=== PATIENT | female | born 1960 | race Caucasian/White ===

== ENCOUNTER 2018-04-25 09:27 | Day surgery (SDC) | payer OTHER, SELFPAY ==
[2018-04-24 13:14] VITALS: BMI 32.4
--- NOTE | 2018-04-25 13:29 | OP ---
DATE OF PROCEDURE: 04/25/2018 PROCEDURES PERFORMED: Esophagogastroduodenoscopy with biopsy, colonoscopy with biopsy and polypectom y. INDICATION FOR PROCEDURE: Mid epigastric abdominal pain, right lower quadrant abdominal pain, abnorm al GI imaging. DESCRIPTION OF PROCEDURE: After the risks and benefits of the procedures were explained to the patie nt including risks of bleeding, infection, perforation, reaction to anesthesia, aspiration and/or adwoa n, informed consent was obtained at which point, the patient was then taken to the endoscopy suite wh ere deep sedation was administered via propofol and anesthesia support. Once adequate sedation was a chieved, the standard gastroscope was introduced into the mouth with intubation of the esophagus, sto mach and the proximal small intestine with the findings listed below. Upon completion of this, the p atient tolerated this portion of the procedure well with no immediate perioperative complications. U xavier completion of this portion of the procedure, all equipment was removed with the bed then rotated 180 degrees in preparation for the colonoscopy. Once in position, a digital rectal examination was p erformed after which the standard colonoscope was introduced into the rectum and advanced to the term inal ileum without difficulty with the findings listed below. The quality of the prep was excellent. The patient tolerated this procedure well with no immediate perioperative complications. ESOPHAGOGASTRODUODENOSCOPY FINDINGS: Esophagus: Normal appearing mucosa was seen just proximal and mid esophagus. In the distal esophagu s, 2-3 small linear erosions were seen extending proximally from the GE junction around 5-7 mm in cedric gth, but without overt ulcerations. There was no evidence of mass lesions or active/recent bleeding. Stomach: Mildly increased mucosal erythema was seen in the gastric cardia, fundus, body, antrum and incisura. There were also numerous small petechial appearing clots. They were seen throughout the s tomach, but upon aggressive irrigation did not yield any obvious pathology underneath multiple biopsi es. Multiple random biopsies were taken throughout the stomach for evaluation of NSAID gastritis daniel yadira H. pylori gastritis. Otherwise, there was no overt erosions, ulcerations, mass lesions or active /recent bleeding. Duodenum: Normal appearing mucosa was seen in both the duodenal bulb and second portion of the duode num. There was no evidence of erosions, ulcerations, mass lesions or active/recent bleeding. IMPRESSION: 1. LA grade B reflux mediated erosive esophagitis. 2. Diffuse mucosal erythema of the entire stomach concerning for nonsteroidal anti-inflammatory drug s gastritis versus Helicobacter pylori infection. COLONOSCOPY FINDINGS: Digital rectal exam, small external hemorrhoids were seen on external examination. COLON FINDINGS: Normal appearing mucosa was seen in the terminal ileum up to 5-10 cm past the ileoce jeremie valve. Normal appearing mucosa was also seen at the ileocecal valve, appendiceal orifice and wit hin the cecum itself. Normal appearing mucosa was seen in the ascending and transverse colon, 2 poly ps measuring 3-4 mm in size were seen in the descending colon and completely removed with cold snare polypectomy. They were retrieved and placed in a specimen jar for evaluation. An additional 3-4 mm polyp was also seen in the sigmoid colon and completely removed with cold snare polypectomy. It was retrieved and placed in a specimen jar for evaluation as well. Normal appearing mucosa was then seen in the rectum with small internal hemorrhoids seen on rectal retroflexion. Random colonic biopsies were taken throughout the entire colon from the ascending, transverse, descending and sigmoid colons for underlying abnormalities. IMPRESSION: 1. Two 3-4 mm descending colon polyp, status post cold snare polypectomy. 2. A 3-4 mm sigmoid colon polyp, status post cold snare polypectomy. 3. Internal and external hemorrhoids. 4. No etiology for the patient's abdominal pain was seen during this examination. RECOMMENDATIONS: 1. We will follow up on the biopsy results with further management guided by the pathology report. 2. We would continue higher fiber diet with FODMAP guidance. 3. Would encourage the patient about administering omeprazole 30-45 minutes before meals. 4. Follow up in the GI clinic in 3 weeks for further evaluation of abdominal pain and acid reflux.
[2018-04-25] MEDS ORDERED: Lidocaine 1% PF 5 ML VIAL ONE (14:35)
[2018-04-25] MEDS ORDERED: PROPOFOL 200 MG/20 ML VIAL ONE (14:35)
== END 2018-04-25 12:27 | disposition home or self-care (01) ==
LOC: SDC 09:27
PROVIDERS: ATTEND Internal Medicine
PROC: 0DBM8ZX Excision of Descending Colon, Via Natural or Artificial Opening Endoscopic, Diagnostic (ICD-10-PCS; principal; 2018-04-25)
PROC: 0DB68ZX Excision of Stomach, Via Natural or Artificial Opening Endoscopic, Diagnostic (ICD-10-PCS; principal; 2018-04-25)
PROC: 0DBN8ZX Excision of Sigmoid Colon, Via Natural or Artificial Opening Endoscopic, Diagnostic (ICD-10-PCS; principal; 2018-04-25)
DX: D12.4 Benign neoplasm of descending colon (principal); D12.5 Benign neoplasm of sigmoid colon; K29.50 Unspecified chronic gastritis without bleeding; K21.9 Gastro-esophageal reflux disease without esophagitis; F17.200 Nicotine dependence, unspecified, uncomplicated; K64.8 Other hemorrhoids; K64.4 Residual hemorrhoidal skin tags; Z88.2 Allergy status to sulfonamides; Z79.899 Other long term (current) drug therapy
CPT/HCPCS: 88305; 88312; J2001; J2704

== ENCOUNTER 2018-05-15 16:04 | Outpatient (CLI) | payer OTHER ==
[2018-05-15 17:11] LABS: #Basophils 0.1 thou/uL (0.0-0.2); #Eosinphils 0.1 thou/uL (0.0-0.7); #Lymphocytes 2.3 thou/uL (1.20-3.40); #Monocytes 0.7 thou/uL (0.11-0.59); #Neutrophils 2.7 thou/uL (1.40-6.50); %Basophils 1.1 % (0.0-1.0); %Eosinophils 2.4 % (0.0-10.0); %Lymphocytes 39.2 % (21.0-51.0); %Monocytes 11.4 % (0.0-10.0); %Neutrophils 45.9 % (42.0-75.0); Hemoglobin 13.4 g/dL (12.0-16.0); Mean Corpuscular HGB CONC 31.4 g/dL (32.0-36.0); Mean Corpuscular Volume 85.9 fL (78.0-98.0); Mean Platelet Volume 7.3 fL (7.4-10.4); Platelet Count 333 thou/uL (130-400); RBC Distribution Width 13.6 % (11.5-14.5); Red Blood Cell (RBC) Count 4.98 mill/uL (4.20-5.40); White Blood Cell (WBC) Count 5.8 thou/uL (4.8-10.8)
[2018-05-15 17:35] LABS: ALT (SGPT) 23 U/L (8-55); AST (SGOT) 20 U/L (5-34); Albumin 4.1 g/dL (3.5-5.0); Alkaline Phosphatase 94 U/L (40-150); Anion Gap 10 mmol/L (10-20); BUN (Urea Nitrogen) 12 mg/dL (9.8-20.1); Bilirubin, Total 0.3 mg/dL (0.2-1.2); Calc. Creatinine Clearance 0 mL/min (70-130); Calcium 10.1 mg/dL (7.8-10.44); Carbon Dioxide 29 mmol/L (22-29); Chloride 104 mmol/L (98-107); Estimated GFR-MDRD 69; Globulin 3.4 g/dL (2.4-3.5); Glucose 69 mg/dL (70-105); Potassium 4.7 mmol/L (3.5-5.1); Protein, Total 7.5 g/dL (6.0-8.3); Sodium 138 mmol/L (136-145)
--- NOTE | 2018-05-16 15:16 | EKG ---
Test Reason : Blood Pressure : / mmHG Vent. Rate : 087 BPM Atrial Rate : 087 BPM P-R Int : 154 ms QRS Dur : 118 ms QT Int : 386 ms P-R-T Axes : 066 049 079 degrees QTc Int : 464 ms Normal sinus rhythm Incomplete right bundle branch block Prolonged QT Abnormal ECG Confirmed by DR. Agnes GALLEGOS MD ([id number]) on 05/16/2018 3:15:22 PM Referred By: NATI Confirmed By:DR. Agnes GALLEGOS MD
== END 2018-05-15 16:05 | disposition home or self-care (01) ==
LOC: LABBT 16:04
PROVIDERS: ATTEND Surgery
DX: Z01.818 Encounter for other preprocedural examination (principal)
CPT/HCPCS: 80053; 85025; 93005; 93010

== ENCOUNTER 2018-05-20 12:15 | Inpatient (IN) | payer OTHER ==
[2018-05-15 16:41] VITALS: BMI 31.2
[2018-05-20] MEDS ORDERED: Hydrocortisone Sod Succ/PF 100 mg/2 ml Vial ONE (13:33)
[2018-05-20] MEDS ORDERED: Glycopyrrolate 0.2 MG/ML 5 ML SYRINGE ONE (13:36)
[2018-05-20] MEDS ORDERED: PROPOFOL 200 MG/20 ML VIAL ONE (13:36)
[2018-05-20] MEDS ORDERED: Succinylcholine Chloride 20 MG/ML 10 ml SYRINGE FS ONE (13:36)
[2018-05-20] MEDS ORDERED: Dexamethasone 20 MG/5 ML VIAL ONE (13:36)
[2018-05-20] MEDS ORDERED: Ondansetron HCl/PF 4 MG/2 ML Vial ONE (13:36)
[2018-05-20] MEDS ORDERED: Lidocaine 1% PF 5 ML VIAL ONE (13:36)
[2018-05-20] MEDS ORDERED: Midazolam HCl 2 mg/2 ml Vial ONE (14:07)
[2018-05-20] MEDS ORDERED: CEFAZOLIN/Water 2 GM/20 ML SYRINGE ONE (14:21)
[2018-05-20] MEDS ORDERED: Fentanyl 100 MCG/2 ML VIAL ONE ×2 (15:02→16:38)
[2018-05-20] MEDS ORDERED: Bupivacaine HCl 0.5%/Epinephrine 1:200,000/PF 30 ml Vial ONE (15:06)
[2018-05-20] MEDS ORDERED: Albumin 5% 500 ML ONE (15:43)
[2018-05-20] MEDS ORDERED: HYDROmorphone 2 MG/ML VIAL ONE (16:49)
[2018-05-20] MEDS ORDERED: Dextrose 50% Abboject 50 ML SYRINGE SLOW IVP PRN (16:55)
[2018-05-20] MEDS ORDERED: HYDROcodone/Acetaminophen 10/325 mg Tablet PO PRN ×2 (16:55)
[2018-05-20] MEDS ORDERED: hydrALAZINE 20 MG/ML VIAL SLOW IVP PRN (16:55)
[2018-05-20] MEDS ORDERED: Morphine 4 MG/ML VIAL SLOW IVP PRN ×2 (16:55)
[2018-05-20] MEDS ORDERED: Dextrose 5% in Water 1,000 ML IV PRN (16:55)
[2018-05-20] MEDS ORDERED: Promethazine HCl 25 MG/ML VIAL IM PRN (16:55)
[2018-05-20] MEDS ORDERED: Ondansetron HCl/PF 4 MG/2 ML Vial IVP PRN ×2 (16:55→17:59)
[2018-05-20] MEDS ORDERED: fentaNYL Citrate/PF 2,000 MCG in Sodium Chloride 0.9% 60 ML IV PRN (17:59)
[2018-05-20] MEDS ORDERED: diphenhydrAMINE 50 MG/ML VIAL IVP PRN (17:59)
[2018-05-20] MEDS ORDERED: Naloxone HCl 0.4 mg/ml Vial IV PRN (17:59)
[2018-05-20] MEDS ORDERED: diphenhydrAMINE 50 MG/ML VIAL IM PRN (17:59)
[2018-05-20] MEDS ORDERED: diphenhydrAMINE 25 MG CAP PO PRN (17:59)
[2018-05-20] MEDS ORDERED: Communication Order-Pharmacy FS SCH (18:00)
[2018-05-20] MEDS: Lactated Ringer's 1,000 ML IV SCH (18:30)
[2018-05-20] MEDS: Ketorolac Tromethamine 30 MG/ML VIAL IVP SCH ×2 (18:31→23:19)
[2018-05-20] MEDS: Famotidine/PF 20 mg/2ml Vial SLOW IVP SCH (20:27)
[2018-05-20] MEDS: cefOXitin 2 GM in Sodium Chloride 0.9% 100 ML IVPB SCH (21:06)
[2018-05-20] MEDS: Famotidine 20 MG TAB PO SCH (21:10)
[2018-05-20] MEDS: Zolpidem Tartrate 5 MG TAB PO PRN (23:22)
--- NOTE | 2018-05-20 23:45 | OP ---
PREOPERATIVE DIAGNOSIS: Possible carcinomatosis. SURGEON: Hunter Brown M.D. PROCEDURES PERFORMED: Diagnostic laparoscopy, laparoscopic lysis of adhesions, laparoscopic omental biopsies. INDICATIONS: The patient is a 58-year-old female, who has been having some vague abdominal pain. Sh zachary had a CT scan showing what looked like possible carcinomatosis. She had EGD and colonoscopy withou t evidence of a source. FINDINGS: The omentum was adherent to the anterior abdominal wall, more so from midline to the left, very firm and inflamed. There was minimal peritoneal fluid. She had what looked like endometriosis down in the pelvis and her right ovary was firmly attached to the abdominal wall as well. PROCEDURE IN DETAIL: After informed consent was obtained, the patient was taken to the operating ulises m, given general endotracheal anesthesia, placed in the supine position. Abdomen was prepped and lisbeth ped in usual fashion. Local anesthesia infiltrated subcutaneously and deep. A 5-mm incision was per formed to the right of the umbilicus. Veress needle inserted. Drop test performed. Pneumoperitoneu m was created to a volume of 2 liters of carbon dioxide. Utilizing a bladeless 5-mm trocar and 0 deg ree laparoscope, direct visual entry in the abdominal cavity was performed. Pneumoperitoneum was the n created to a pressure of 15 mmHg. Under direct vision, two 5-mm ports were placed on the right peyton e as this mass was mainly on the left and it was very firmly attached. There was not an obvious tumo r nodule, but it was firm like it was inflamed or there might be tumor involving it. Using the LigaS ure, it was from the anterior abdominal wall. Hemostasis assured. Then, pieces of this om entum where it was most dense were excised and removed for biopsy. Again, there was not any definite source. Looked down in the pelvis, there was evidence of endometriosis in both pelvis and the ovari es were very firmly attached to the anterior abdominal wall. Hemostasis was achieved utilizing the L igaSure as well as Sussy powder. Then, trocars and retractors removed. Skin closed with interrupte d 4-0 Rapide. Steri-Strips applied. Sterile bandage applied. The patient tolerated the procedure w ell and was transferred to recovery in good condition. Sponge and needle count verified correct x2.
[2018-05-21 04:40] LABS: #Lymphocytes 0.8 thou/uL (1.20-3.40); #Monocytes 0.5 thou/uL (0.11-0.59); #Neutrophils 4.3 thou/uL (1.40-6.50); %Basophils 0.2 % (0.0-1.0); %Eosinophils 0.9 % (0.0-10.0); %Lymphocytes 14.5 % (21.0-51.0); %Monocytes 9.2 % (0.0-10.0); %Neutrophils 75.3 % (42.0-75.0); Hemoglobin 11.6 g/dL (12.0-16.0); Mean Corpuscular HGB CONC 30.9 g/dL (32.0-36.0); Mean Corpuscular Volume 87.4 fL (78.0-98.0); Mean Platelet Volume 7.9 fL (7.4-10.4); Platelet Count 281 thou/uL (130-400); RBC Distribution Width 13.6 % (11.5-14.5); White Blood Cell (WBC) Count 5.6 thou/uL (4.8-10.8)
[2018-05-21 04:48] LABS: Anion Gap 14 mmol/L (10-20); BUN (Urea Nitrogen) 11 mg/dL (9.8-20.1); Calc. Creatinine Clearance 87 mL/min (70-130); Calcium 9.5 mg/dL (7.8-10.44); Carbon Dioxide 24 mmol/L (22-29); Chloride 105 mmol/L (98-107); Estimated GFR-MDRD 71; Glucose 110 mg/dL (70-105); Potassium 4.5 mmol/L (3.5-5.1); Sodium 138 mmol/L (136-145)
[2018-05-21] MEDS: cefOXitin 2 GM in Sodium Chloride 0.9% 100 ML IVPB SCH ×3 (05:18→21:57)
[2018-05-21] MEDS: Ketorolac Tromethamine 30 MG/ML VIAL IVP SCH ×4 (05:18→23:07)
[2018-05-21] MEDS: Lactated Ringer's 1,000 ML IV SCH ×3 (05:21→23:13)
[2018-05-21] MEDS: Enoxaparin Sodium 40 MG/0.4 ML SYRINGE SC SCH (08:10)
[2018-05-21] MEDS: Famotidine 20 MG TAB PO SCH ×2 (08:10→20:14)
[2018-05-21] MEDS: Famotidine/PF 20 mg/2ml Vial SLOW IVP SCH ×2 (08:14→20:14)
[2018-05-21] MEDS: Acetaminophen 1,000 MG in Premix Bag 1 BAG IVPB SCH ×3 (11:15→23:07)
[2018-05-21] MEDS ORDERED: DC PCA Order Set 1 EACH FS ONE (16:31)
[2018-05-21] MEDS ORDERED: HYDROcodone/Acetaminophen 10/325 mg Tablet PO PRN (16:32)
[2018-05-21] MEDS ORDERED: Morphine 4 MG/ML Carpuject SLOW IVP PRN (16:32)
--- NOTE | 2018-05-21 17:25 | PRG ---
DATE OF SERVICE: 05/21/2018 SUBJECTIVE: The patient reports still having quite a bit of pain, but it is better. She is tolerati ng diet. She feels bloated. PHYSICAL EXAMINATION: VITAL SIGNS: Temperature 98.1, pulse 68, blood pressure 135/84. She is up walking. She looks like she is okay. ABDOMEN: Soft, obese, mild tenderness. LABORATORY DATA: White count 5.6, H&H 11 and 37, platelet count 281. The pathology is pending. ASSESSMENT: Status post omental biopsy. PLAN: Switch her off the [employer] to oral pain medicines, hopefully go home tomorrow.
[2018-05-21] MEDS: HYDROcodone/Acetaminophen 10/325 mg Tablet PO PRN ×2 (17:58→23:18)
[2018-05-21] MEDS: Promethazine HCl 25 MG/ML VIAL IM PRN (18:05)
[2018-05-21] MEDS ORDERED: Morphine 2 MG/ML SYRINGE SLOW IVP PRN (19:20)
[2018-05-21] MEDS ORDERED: Morphine 4 MG/ML VIAL SLOW IVP PRN (19:21)
[2018-05-21] MEDS: Venlafaxine HCl XR 75 MG CAP PO SCH (20:14)
[2018-05-21] MEDS: traZODone HCl 50 MG TAB PO PRN (20:17)
[2018-05-21] MEDS: Zolpidem Tartrate 5 MG TAB PO PRN (22:00)
[2018-05-22] MEDS: HYDROcodone/Acetaminophen 10/325 mg Tablet PO PRN ×5 (04:09→22:20)
[2018-05-22] MEDS: Acetaminophen 1,000 MG in Premix Bag 1 BAG IVPB SCH ×2 (05:09→12:21)
[2018-05-22] MEDS: cefOXitin 2 GM in Sodium Chloride 0.9% 100 ML IVPB SCH ×3 (05:17→21:48)
[2018-05-22] MEDS: Ketorolac Tromethamine 30 MG/ML VIAL IVP SCH ×4 (05:18→23:42)
[2018-05-22] MEDS: Famotidine 20 MG TAB PO SCH ×2 (08:59→20:44)
[2018-05-22] MEDS: Enoxaparin Sodium 40 MG/0.4 ML SYRINGE SC SCH (08:59)
[2018-05-22] MEDS: Promethazine HCl 25 MG/ML VIAL IM PRN (09:12)
[2018-05-22] MEDS: Famotidine/PF 20 mg/2ml Vial SLOW IVP SCH ×2 (09:59→20:44)
[2018-05-22] MEDS: Lactated Ringer's 1,000 ML IV SCH ×2 (10:05→19:37)
[2018-05-22] MEDS ORDERED: Magnesium Citrate 300 ML BOT PO SCH (12:00)
[2018-05-22] MEDS: Venlafaxine HCl XR 75 MG CAP PO SCH (20:43)
[2018-05-22] MEDS: traZODone HCl 50 MG TAB PO PRN (20:46)
[2018-05-22] MEDS ORDERED: Venlafaxine HCl XR 75 MG CAP PO SCH (21:00)
[2018-05-23] MEDS: HYDROcodone/Acetaminophen 10/325 mg Tablet PO PRN ×3 (02:43→11:31)
[2018-05-23] MEDS: Lactated Ringer's 1,000 ML IV SCH (04:39)
[2018-05-23] MEDS: Ketorolac Tromethamine 30 MG/ML VIAL IVP SCH ×2 (05:34→11:31)
[2018-05-23] MEDS: cefOXitin 2 GM in Sodium Chloride 0.9% 100 ML IVPB SCH (05:35)
[2018-05-23] MEDS: Enoxaparin Sodium 40 MG/0.4 ML SYRINGE SC SCH (08:11)
[2018-05-23] MEDS: Famotidine/PF 20 mg/2ml Vial SLOW IVP SCH (08:11)
[2018-05-23] MEDS: Famotidine 20 MG TAB PO SCH (08:11)
[2018-05-23 11:57] VITALS: BP 136/81; TEMP 98
== END 2018-05-23 14:59 | disposition home or self-care (01) | DRG 376 ==
LOC: SDC 12:15 → SURG B 17:36
PROVIDERS: ADMIT Surgery; ATTEND Surgery
PROC: 0DBU4ZX Excision of Omentum, Percutaneous Endoscopic Approach, Diagnostic (ICD-10-PCS; principal; 2018-05-20)
DX: C48.2 Malignant neoplasm of peritoneum, unspecified (principal); F32.9 Major depressive disorder, single episode, unspecified; Z88.8 Allergy status to other drugs, medicaments and biological substances; F41.9 Anxiety disorder, unspecified
CPT/HCPCS: 36415; 80048; 85025; 88305; 88313; 88341; 88342; 94640; J0131; J0670; J0694; J1100; J1170; J1650; J1720; J1885; J2001; J2250; J2270; J2405; J2550; J2704; J3010; J7050; J7620; P9045; S0028

== ENCOUNTER 2018-06-02 10:50 | Outpatient (CLI) | payer OTHER ==
[~2018-06-02 10:50] MED LIST: Iopamidol 370 76% 100 ML VIAL ONE
--- NOTE | 2018-06-02 13:38 | CT ---
CONTRAST ENHANCED CT OF THE CHEST CONTRAST ENHANCED CT OF THE ABDOMEN AND PELVIS: History: 58-year-old with history of malignant neoplasm. C48.1 Technique: Contrast enhanced CT images of the chest, abdomen, and pelvis obtained. Comparison: 03-28-18 FINDINGS: CT CHEST: There is some mild interstitial fibrotic changes seen in the periphery of the right and left lower lo bes compatible with some interstitial fibrosis. No definite evidence of lung parenchymal metastases s een. No definite evidence of mediastinal, axillary or hilar lymphadenopathy is seen. Hepatic steatosis is seen. The gallbladder has been surgically removed. The spleen is unremarkable. T he pancreas is unremarkable. Adrenal glands are unremarkable. The kidneys and ureters are unremarkable without evidence of hydronephrosis. There does appear to be fat stranding in the mesenteric fat, not significantly changed since the prev ious exam, most compatible with intraperitoneal carcinomatosis. No definite evidence of ascites seen at this time. No evidence of periaortic lymphadenopathy seen. Some minimal sigmoid colonic diverticulosis is present. No definite evidence of abdominal or pelvic osseous lesions seen. IMPRESSION: Continued fat stranding in the mesenteric fat concerning for mesenteric adenitis. Findings not signif icantly changed. POS: [facility]
== END 2018-06-02 10:51 | disposition home or self-care (01) ==
LOC: CT 10:50
PROVIDERS: ATTEND Internal Medicine Hematology & Oncology
DX: C48.1 Malignant neoplasm of specified parts of peritoneum (principal)
CPT/HCPCS: 71260; 74177

== ENCOUNTER 2018-06-30 07:53 | Day surgery (SDC) | payer OTHER ==
[2018-06-27 13:37] VITALS: BMI 25.0
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
[2018-06-30] MEDS ORDERED: Midazolam HCl 2 mg/2 ml Vial ONE (08:38)
[2018-06-30] MEDS ORDERED: CEFAZOLIN 2 GM/50 ML BAG ONE (08:40)
[2018-06-30] MEDS ORDERED: Bupivacaine HCl 0.5%/Epinephrine 1:200,000/PF 30 ml Vial ONE (09:33)
[2018-06-30] MEDS ORDERED: Lidocaine 2% PF 5 ML VIAL ONE (09:50)
--- NOTE | 2018-06-30 10:41 | OP ---
DATE OF PROCEDURE: 06/30/2018 PREOPERATIVE DIAGNOSIS: Peritoneal carcinomatosis. SURGEON: Hunter Brown M.D. PROCEDURE PERFORMED: MediPort placement. INDICATIONS: A 58-year-old female with peritoneal carcinomatosis needs access for chemo. FINDINGS: Placement was in the right subclavian by patient request. PROCEDURE: After informed consent was obtained, the patient was taken to the operating room and give n total intravenous anesthesia, placed in the Trendelenburg position. Her chest and neck were preppe d and draped in usual fashion. Local anesthesia infiltrated subcutaneously and deep. Introducer nee dle was inserted right subclavian. Good backflow of venous blood. J-wire threaded easily. Fluorosc opy used showed good placement in the superior vena cava. Skin and subcutaneous anesthetized transve rse incision performed. The subcu divided sharply and a pocket created on the pectoralis fascia. Th e tunneling device used to connect the two incisions and the catheter brought through the tunnel. It was connected to the MediPort and the system was flushed with heparinized saline. The MediPort secu red to the pectoralis fascia with interrupted 2-0 Prolene suture. The tubing was cut to size. The p eel-away introducer inserted over the wire. The wire was removed, catheter inserted through the peel -away introducer and the peel-away introducer removed. Fluoroscopy again used showed good placement in superior vena cava. Subcutaneous reapproximated with interrupted 3-0 Vicryl. Skin closed with ru nning subcuticular 4-0 Rapide. Dermabond applied. The patient tolerated the procedure well and was transferred to recovery in good condition. Sponge and needle count verified correct x2.
--- NOTE | 2018-06-30 11:25 | RAD ---
PORTABLE CHEST ONE VIEW: Date: 06-30-18 Time: 10:40 a.m. History: Mediport placement. FINDINGS: Comparison is made with exam of 01-16-17. The heart size is borderline. The aorta is tortuous. There is a right subclavian jones catheter tip i n the projection of the SVC. The lungs are well expanded without lobar consolidation, pneumothoraces or pleural effusions. IMPRESSION: No acute process. POS: C
== END 2018-06-30 11:34 | disposition home or self-care (01) ==
LOC: SDC 07:53
PROVIDERS: ATTEND Surgery
PROC: 0JH63WZ Insertion of Totally Implantable Vascular Access Device into Chest Subcutaneous Tissue and Fascia, Percutaneous Approach (ICD-10-PCS; principal; 2018-06-30)
DX: C78.6 Secondary malignant neoplasm of retroperitoneum and peritoneum (principal); C80.1 Malignant (primary) neoplasm, unspecified; F32.9 Major depressive disorder, single episode, unspecified; M19.90 Unspecified osteoarthritis, unspecified site; Z79.899 Other long term (current) drug therapy; Z88.2 Allergy status to sulfonamides
CPT/HCPCS: 71045; C1788; J0670; J1642; J2001; J2250

== ENCOUNTER 2018-07-04 07:28 | Day surgery (SDC) | payer OTHER, SELFPAY ==
[2018-07-04] MEDS ORDERED: Sodium Chloride 0.9% 20 ML ONE (08:11)
[2018-07-04] MEDS ORDERED: Palonosetron HCl 0.25 MG in Sodium Chloride 0.9% 50 ML IVPB SCH (08:30)
[2018-07-04] MEDS ORDERED: diphenhydrAMINE 25 MG CAP PO SCH (08:30)
[2018-07-04] MEDS ORDERED: SODIUM CHLORIDE 0.9% IVPB SCH (08:30)
[2018-07-04] MEDS ORDERED: Dexamethasone 20 MG in Sodium Chloride 0.9% 50 ML IVPB SCH (08:30)
[2018-07-04] MEDS ORDERED: CARBOPLATIN IVPB SCH (08:30)
[2018-07-04] MEDS ORDERED: Famotidine/PF 20 mg/2ml Vial SLOW IVP SCH (08:30)
[2018-07-04 08:40] VITALS: BP 123/61; TEMP 98.3
[2018-07-04] MEDS ORDERED: Dexamethasone Sod Phosphate 20 MG in Sodium Chloride 0.9% 50 ML IVPB SCH (08:45)
[2018-07-04] MEDS ORDERED: PALONOSETRON HCL 0.05 MG/ML 5 ML VIAL IVP SCH (08:45)
== END 2018-07-04 15:17 | disposition home or self-care (01) ==
LOC: ONC/OP 07:28
PROVIDERS: ATTEND Internal Medicine Hematology & Oncology
DX: Z51.11 Encounter for antineoplastic chemotherapy (principal); C48.1 Malignant neoplasm of specified parts of peritoneum; Z88.2 Allergy status to sulfonamides
CPT/HCPCS: 96375; 96413; 96415; 96416; J1100; J1642; J2469; J7050; J9045; J9267; S0028

== ENCOUNTER 2018-07-25 07:21 | Day surgery (SDC) | payer OTHER, SELFPAY ==
[2018-07-25 08:21] VITALS: BP 128/70; TEMP 98
[2018-07-25] MEDS ORDERED: Sodium Chloride 0.9% 20 ML ONE (08:32)
[2018-07-25] MEDS ORDERED: diphenhydrAMINE 25 MG CAP PO SCH (09:00)
[2018-07-25] MEDS ORDERED: Dexamethasone Sod Phosphate 20 MG in Sodium Chloride 0.9% 50 ML IVPB SCH (09:00)
[2018-07-25] MEDS ORDERED: Famotidine 20 MG TAB PO SCH (09:00)
[2018-07-25] MEDS ORDERED: CARBOPLATIN IVPB SCH (09:30)
[2018-07-25] MEDS ORDERED: Palonosetron HCl 0.25 MG in Sodium Chloride 0.9% 50 ML IVPB SCH (09:30)
[2018-07-25] MEDS ORDERED: SODIUM CHLORIDE 0.9% IVPB SCH (09:30)
== END 2018-07-25 15:43 | disposition home or self-care (01) ==
LOC: ONC/OP 07:21
PROVIDERS: ATTEND Internal Medicine
DX: Z51.11 Encounter for antineoplastic chemotherapy (principal); C48.1 Malignant neoplasm of specified parts of peritoneum; F17.210 Nicotine dependence, cigarettes, uncomplicated; M19.90 Unspecified osteoarthritis, unspecified site; F41.9 Anxiety disorder, unspecified; F32.9 Major depressive disorder, single episode, unspecified; Z88.2 Allergy status to sulfonamides; Z90.49 Acquired absence of other specified parts of digestive tract; Z79.899 Other long term (current) drug therapy; Z98.890 Other specified postprocedural states
CPT/HCPCS: 96375; 96413; 96417; J1642; J2469; J7050; J9045; J9267

== ENCOUNTER 2018-08-25 07:00 | Outpatient (CLI) | payer OTHER ==
--- NOTE | 2018-08-25 09:48 | CT ---
CT OF THE CHEST AND ABDOMEN AND PELVIS WITH IV CONTRAST: INDICATION: History of primary peritoneal carcinomatosis status post 3 cycles of chemotherapy, concern for respon se to therapy. CONTRAST: 7 cc Isovue 370. COMPARISON: CT abdomen and pelvis from [facility] dated 03/28/[address] of the chest, abdom en, and pelvis with IV contrast from [facility]. FINDINGS: CHEST: There is scattered emphysema that is stable. There is a 4 mm pulmonary nodule within the right lung apex on image 11 of series 3. No additional suspicious pulmonary nodule is evident. There is a calc ified granuloma within the left lower lobe. There is moderate interstitial fibrotic change involving the periphery of both lungs. There is a right chest wall port in place. No pathologically enlarged lymph nodes are evident. There are moderate calcifications involving the aortic arch. ABDOMEN AND PELVIS: There is prominent fatty infiltration of the liver which is stable to the comparison exam. The gallb ladder is surgically absent. The pancreas, adrenal glands, and spleen are normal-appearing. No path ologically enlarged lymph nodes are seen within the upper abdomen. There are moderate calcifications involving the abdominal aorta. There is a hazy opacity involving the omentum that is less prominent than seen on the comparison exam consistent with changes of response to therapy. No large nodular density is present within the mango toneal cavity. The high-density material seen within the cul-de-sac of Louie is slightly less prom inent than seen on the comparison examination and may reflect some soft tissue calcification from gisela nges of prior therapy. There are scattered diverticula involving the colon. There is a normal retro cecal appendix. The small bowel is of normal caliber. The bladder, rectum, and perirectal soft tiss ues are unremarkable. OSSEOUS STRUCTURES: No suspicious osteolytic or osteoblastic lesion is identified. IMPRESSION: 1. Findings consistent with response to therapy. The hazy nodular opacities involving the omentum h ave decreased in prominence from the prior examination dated 06/02/2018. 2. The high-density linear material seen within the retrouterine space is less prominent and may ref lect resolving sequelae of chemotherapy. 3. Prominent fatty infiltration of the liver. 4. Moderate emphysema. 5. A 4 mm right lung apex pulmonary nodule is stable to the prior exam. Continued followup is recom mended. 6. Cholelithiasis. 7. Colonic diverticulosis. POS: [facility]
[2018-08-25] MEDS ORDERED: ISOVUE-370 76%-LOCM 1 ML ONE (11:55)
== END 2018-08-25 07:01 | disposition home or self-care (01) ==
LOC: BICCT 07:00
PROVIDERS: ATTEND Internal Medicine Hematology & Oncology
DX: C48.2 Malignant neoplasm of peritoneum, unspecified (principal); K76.0 Fatty (change of) liver, not elsewhere classified; J43.9 Emphysema, unspecified; R91.1 Solitary pulmonary nodule; K80.20 Calculus of gallbladder without cholecystitis without obstruction; K57.30 Diverticulosis of large intestine without perforation or abscess without bleeding
CPT/HCPCS: 71260; 74177

== ENCOUNTER 2018-10-17 07:10 | Day surgery (SDC) | payer MEDICAID ==
[~2018-10-17 07:10] MED LIST changes: +CARBOPLATIN IVPB SCH; +Dexamethasone 20 MG in Sodium Chloride 0.9% 50 ML IVPB SCH; +Famotidine/PF 20 MG in Sodium Chloride 0.9% 50 ML IVPB SCH; -Iopamidol 370 76% 100 ML VIAL ONE; +Palonosetron HCl 0.25 MG in Sodium Chloride 0.9% 50 ML IVPB SCH; +SODIUM CHLORIDE 0.9% IVPB SCH; +diphenhydrAMINE 50 MG in Sodium Chloride 0.9% 50 ML IVPB SCH
[2018-10-17] MEDS ORDERED: Dexamethasone Sod Phosphate 20 MG in Sodium Chloride 0.9% 50 ML IVPB SCH (08:00)
[2018-10-17 09:57] VITALS: BP 115/68; TEMP 98.6
[2018-10-17] MEDS ORDERED: Sodium Chloride 0.9% 20 ML ONE (11:07)
== END 2018-10-17 13:44 | disposition home or self-care (01) ==
LOC: ONC/OP 07:10
PROVIDERS: ATTEND Internal Medicine Hematology & Oncology
DX: Z51.11 Encounter for antineoplastic chemotherapy (principal); C48.1 Malignant neoplasm of specified parts of peritoneum; Z88.2 Allergy status to sulfonamides
CPT/HCPCS: 96375; 96413; 96415; 96417; J1100; J1200; J1642; J2469; J7050; J9045; J9267; S0028

== ENCOUNTER 2018-11-07 07:44 | Day surgery (SDC) | payer MEDICAID ==
[~2018-11-07 07:44] MED LIST changes: -Dexamethasone 20 MG in Sodium Chloride 0.9% 50 ML IVPB SCH; +Dexamethasone Sod Phosphate 20 MG in Sodium Chloride 0.9% 50 ML IVPB SCH; +Pegfilgrastim Onpro 6 MG/0.6 ML SQ SCH
[2018-11-07] MEDS ORDERED: Sodium Chloride 0.9% 30 ML ONE (08:05)
[2018-11-07] MEDS ORDERED: PALONOSETRON HCL 0.05 MG/ML 5 ML VIAL IVP SCH (08:45)
[2018-11-07 10:15] VITALS: BP 140/75; TEMP 97.8
== END 2018-11-07 15:28 | disposition home or self-care (01) ==
LOC: ONC/OP 07:44
PROVIDERS: ATTEND Internal Medicine Hematology & Oncology
DX: Z51.11 Encounter for antineoplastic chemotherapy (principal); C48.1 Malignant neoplasm of specified parts of peritoneum; Z88.2 Allergy status to sulfonamides
CPT/HCPCS: 96375; 96377; 96413; 96415; 96417; J1642; J2469; J2505; J7050; J9045; J9267

== ENCOUNTER → 2018-11-08 | Day surgery (SDC) | payer MEDICAID ==
[~2018-11-08] MED LIST changes: -CARBOPLATIN IVPB SCH; -Dexamethasone Sod Phosphate 20 MG in Sodium Chloride 0.9% 50 ML IVPB SCH; -Famotidine/PF 20 MG in Sodium Chloride 0.9% 50 ML IVPB SCH; +PEGFILGRASTIM-JMDB 6 MG/0.6 ML SYRINGE SQ SCH; -Palonosetron HCl 0.25 MG in Sodium Chloride 0.9% 50 ML IVPB SCH; -Pegfilgrastim Onpro 6 MG/0.6 ML SQ SCH; -SODIUM CHLORIDE 0.9% IVPB SCH; -diphenhydrAMINE 50 MG in Sodium Chloride 0.9% 50 ML IVPB SCH
[2018-11-08 09:53] VITALS: BP 130/90; TEMP 97.8
== END ==
LOC: ONC/OP 09:39
PROVIDERS: ATTEND Internal Medicine Hematology & Oncology
DX: Z51.89 Encounter for other specified aftercare (principal); C48.1 Malignant neoplasm of specified parts of peritoneum; Z88.2 Allergy status to sulfonamides
CPT/HCPCS: Q5108

== ENCOUNTER 2018-11-15 03:43 | Observation (INO) | payer MEDICAID, OTHER ==
[2018-11-15] MEDS ORDERED: Nicotine 21 MG PATCH TOP SCH (04:30)
[2018-11-15] MEDS ORDERED: HYDROmorphone 0.5 MG/0.5 ML SYRINGE ONE (05:04)
[2018-11-15] MEDS ORDERED: Calcium Carbonate 500 MG ChewTAB PO PRN (07:57)
[2018-11-15] MEDS ORDERED: Ondansetron ODT 4 MG TAB PO PRN (07:57)
[2018-11-15] MEDS ORDERED: Ondansetron PF 4 MG/2 ML Vial IVP PRN (07:57)
[2018-11-15] MEDS ORDERED: cloNIDine 0.1 MG TAB PO PRN (07:57)
[2018-11-15] MEDS ORDERED: hydrALAZINE 20 MG/ML VIAL SLOW IVP PRN (07:57)
[2018-11-15] MEDS ORDERED: Sodium Chloride 0.65% Nasal 44 ML BOT EA NARE PRN (07:57)
[2018-11-15] MEDS ORDERED: HYDROcodone/Acetaminophen 5/325 mg Tablet PO PRN ×2 (07:57)
[2018-11-15] MEDS ORDERED: Sodium Chloride 0.9% 1,000 ML IV SCH (08:00)
[2018-11-15 08:01] VITALS: BMI 28.5
[2018-11-15] MEDS ORDERED: Enoxaparin Sodium 40 MG/0.4 ML SYRINGE SC SCH (09:00)
[2018-11-15] MEDS ORDERED: Famotidine/PF 20 mg/2ml Vial SLOW IVP SCH (09:00)
[2018-11-15] MEDS ORDERED: Acetaminophen 1,000 MG in Premix Bag 1 BAG IVPB PRN (12:46)
[2018-11-15] MEDS: Morphine 4 MG/ML VIAL SLOW IVP PRN ×5 (13:13→23:18)
[2018-11-15] MEDS: Lactated Ringer's 1,000 ML IV SCH ×3 (13:18→20:30)
[2018-11-15] MEDS ORDERED: HYDROcodone/Acetaminophen 10/325 mg Tablet PO PRN (13:27)
--- NOTE | 2018-11-15 13:50 | RAD ---
KUB AND UPRIGHT: Date: 11/15/18 HISTORY: NG tube placement. FINDINGS: The bowel gas pattern is nonobstructed. The NG tube is seen, tip overlying body or antrum region of s tomach. Postop cholecystectomy changes are seen. PA CHEST: Heart size within normal limits. Right-sided MediPort catheter is present. Lungs show some slightly i ncreased interstitial lung markings which appear chronic. IMPRESSION: NG tube with tip overlying the body or antrum region of stomach. POS: [facility]
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
[2018-11-15] MEDS: Ketorolac Tromethamine 30 MG/ML VIAL IVP PRN (14:16)
[2018-11-15] MEDS ORDERED: MD-Gastroview 120 ML BOT ONE (15:40)
--- NOTE | 2018-11-15 17:32 | HP ---
HISTORY OF PRESENT ILLNESS: Vivienne Fong is a 58-year-old female, who is undergoing chemotherapy for cancer. The patient was initially seen in this institution with findings consistent with carcinomatosis. She was followed by Dr. Brown on 05/20/2018. Dr. Brown performed a laparoscopy with omental biopsy demonstrating changes consistent with carcinomatosis, and then, subsequently, the patient had a MediPort on June 30, 2018, followed by Dr. Bradford. Pathology provided by Dr. 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 The patient has undergone 3 cycles of chemotherapy, underwent in August, hysterectomy, Dr. Lolly Leach in the [facility]. The patient reports that she had a small volume disease, not appreciated on the CAT scan findings at operation. She has completed 2 or 3 cycles of chemotherapy and is scheduled for mid November another round of chemotherapy. She presents to the emergency room because of obstipation of 24 hours and abdominal pain. She states that she has had lower abdominal pain for 3 weeks. She has undergone imaging, CAT scan of abdomen and pelvis revealing density unchanged from prior CAT scan, 3 weeks prior, in the omental area. The patient's CA 125 was slightly elevated in May 2018 at 36.4, not rechecked. The patient's CAT scan without oral contrast suggested some distended small bowel loops, possibly reflective of partial obstruction. She had quite a bit of volume in her stomach. An NG tube was placed after my consultation and evacuated about 400 mL out of the stomach. The abdominal x-rays obtained were nonobstructive in nature. She is undergoing a small bowel follow through contrast for NG tube, and after 45 minutes, she is tolerating this well with contrast progressing into the small bowel, but she has not passed flatus or stool, but she is not having nausea or vomiting. The patient is anxious to have her NG tube removed. She has asked me about doing a laparoscopy to see how things are progressing. I have told her without objective findings or indication of obstruction, this would not be appropriate at this time. Her 1 hour x-ray seems to be stagnant. ALLERGIES: SULFA. SOCIAL HISTORY: Tobacco, one half pack per day, cut down from a pack a day. Alcohol, rarely. MEDICATIONS AT HOME: [place] 10, trazodone, Effexor. She does not take any stool softeners or fiber. PAST SURGICAL HISTORY: MediPort, laparoscopy, hysterectomy as noted above, otherwise noncontributory. REVIEW OF SYSTEMS: Noncontributory. PHYSICAL EXAMINATION: VITAL SIGNS: Height 5 feet, weight 146 pounds, 28 BMI, temperature 98.2, pulse rate 87, blood pressure 118/80. HEAD, EYES, EARS, NOSE, AND THROAT: Unremarkable. LUNGS: Clear to auscultation. CARDIAC: Regular rate and rhythm without murmur or gallop. ABDOMEN: Soft, mildly obese, well-healed incision from recent hysterectomy in August. Bowel sounds diminished. Slightly tympanitic, slightly distended. EXTREMITIES: Unremarkable. ASSESSMENT: History of gynecological malignancy, status post hysterectomy, undergoing chemotherapy. History of carcinomatosis. Tobacco abuse. PLAN: Completion of small bowel follow through and await those results. Continue NG tube for now until this completion. Check CA-125 level while she is in the hospital. Hopefully, can avoid operative intervention in this hospitalization. Job ID: [id number]
--- NOTE | 2018-11-15 18:19 | RAD ---
SMALL BOWEL EXAM: 11/15/18 Gastrografin was infused. Indwelling NG tube. Sequential images of abdomen obtained. INDICATIONS: Small bowel obstruction. FINDINGS: On initial 30 minute film, the jejunum opacifies and appears unremarkable. Films out to two hours show opacification of jejunum and ileum. No significant dilatation. On the 3 hour 30 minute film, contrast is seen in the right colon. No significant small bowel dilatat ion. IMPRESSION: Mildly prolonged transit time. No significant small bowel dilatation. POS: [facility]
[2018-11-15] MEDS: Enoxaparin Sodium 40 MG/0.4 ML SYRINGE SC SCH (20:02)
[2018-11-15] MEDS: Polyethylene Glycol 3350 17 GM Packet PO SCH ×2 (20:02→20:04)
[2018-11-16] MEDS: Ketorolac Tromethamine 30 MG/ML VIAL IVP PRN (00:04)
[2018-11-16] MEDS: Morphine 4 MG/ML VIAL SLOW IVP PRN ×6 (02:14→18:43)
[2018-11-16 05:12] LABS: Anion Gap 10 mmol/L (10-20); BUN (Urea Nitrogen) 8 mg/dL (9.8-20.1); Calc. Creatinine Clearance 106 mL/min (70-130); Carbon Dioxide 28 mmol/L (22-29); Chloride 109 mmol/L (98-107); Estimated GFR-MDRD Greater than 90; Glucose 81 mg/dL (70-105); Potassium 4.3 mmol/L (3.5-5.1); Sodium 143 mmol/L (136-145)
[2018-11-16 05:33] LABS: Band 8 % (5-11); Eosinophils 1 % (0-10); Hemoglobin 8.8 g/dL (12.0-16.0); Lymphocytes 33 % (21-51); MDiff Complete? YES; Mean Corpuscular HGB CONC 33.1 g/dL (32.0-36.0); Mean Corpuscular Hemoglobin 32.5 pg (27.0-31.0); Mean Corpuscular Volume 98.2 fL (78.0-98.0); Mean Platelet Volume 9.7 fL (7.4-10.4); Monocytes 14 % (0-10); Neutrophil 44 % (42-75); Platelet Count 84 thou/uL (130-400); Platelet Morphology Comment Appears Decreased; RBC Distribution Width 17.1 % (11.5-14.5); Red Blood Cell (RBC) Count 2.71 mill/uL (4.20-5.40); White Blood Cell (WBC) Count 5.8 thou/uL (4.8-10.8)
[2018-11-16] MEDS: Polyethylene Glycol 3350 17 GM Packet PO SCH ×2 (08:22→20:07)
[2018-11-16] MEDS: Pantoprazole 40 MG VIAL IVP SCH (08:24)
[2018-11-16] MEDS ORDERED: traZODone HCl 50 MG TAB PO PRN (08:29)
[2018-11-16] MEDS ORDERED: Promethazine 25 MG TAB PO PRN (08:29)
--- NOTE | 2018-11-16 11:14 | RAD ---
KUB: Date: 11/16/18 HISTORY: Follow-up small bowel obstruction. COMPARISON: Prior day's small bowel follow-through. FINDINGS: There is air in both small and large bowel. Small bowel loops do not appear dilated. The contrast has now passed entirely into the colon. IMPRESSION: No small bowel dilatation. The contrast from the previous small bowel follow-through is now entirely within the colon. POS: [facility]
[2018-11-16] MEDS: Lactated Ringer's 1,000 ML IV SCH ×2 (11:44→20:09)
[2018-11-16] MEDS: FLUoxetine HCl 20 MG CAP PO SCH (11:44)
--- NOTE | 2018-11-16 12:57 | PDOC.PN ---
- Subjective Encounter Start Date: 11/16/18 Encounter Start Time: 12:55 Subjective: feels a little better. abd pain improving -: had a large BM this morning.had 6 hours of NGT yesterday w relief -: no new complaints. just feels weak - Objective MAR Reviewed: Yes Vital Signs & Weight: Vital Signs (12 hours) Temp Pulse Resp BP Pulse Ox 11/16/18 07:10 98.1 F 80 18 119/84 96 11/16/18 03:45 97.9 F 78 18 121/78 99 Weight Weight 146 lb I&O: 11/15/18 11/16/18 11/17/18 06:59 06:59 06:59 Intake Total 2075 Output Total 550 Balance 1525 Result Diagrams: 11/16/18 04:05 11/16/18 04:05 Additional Labs: Laboratory Tests 10/09/18 11/15/18 11/16/18 08:13 00:05 04:05 Hgb 8.6 L 8.8 L Plt Count 280 86 L 84 L Phys Exam - Physical Examination Constitutional: NAD pale HEENT: PERRLA, moist MMs, sclera anicteric, oral pharynx no lesions Neck: no nodes, no JVD, supple, full ROM Respiratory: no wheezing, no rales, no rhonchi Cardiovascular: RRR, no significant murmur Gastrointestinal: soft, non-tender, no distention, positive bowel sounds Musculoskeletal: no edema, pulses present Neurological: non-focal, normal sensation, moves all 4 limbs Psychiatric: normal affect, A&O x 3 Skin: no rash Dx/Plan (1) Partial small bowel obstruction Status: Acute Comment: Clinically better (2) Anemia Code(s): D64.9 - ANEMIA, UNSPECIFIED Status: Acute Qualifiers: Other causes of anemia: antineoplastic chemotherapy (3) Thrombocytopenia Code(s): D69.6 - THROMBOCYTOPENIA, UNSPECIFIED Status: Acute Comment: Due to recent chemoRx (4) Peritoneal carcinomatosis Code(s): C78.6 - SECONDARY MALIGNANT NEOPLASM OF RETROPERITON AND PERITONEUM; C80.1 - MALIGNANT (PRIMARY) NEOPLASM, UNSPECIFIED Status: Chronic Comment: stable.Follows up with Dr.Christine brown at [facility] in [place].NM (5) Cervical cancer Code(s): C53.9 - MALIGNANT NEOPLASM OF CERVIX UTERI, UNSPECIFIED Status: Chronic Comment: s/p complete DAWIT-BSO (6) History of COPD Code(s): Z87.09 - PERSONAL HISTORY OF OTHER DISEASES OF THE RESPIRATORY SYSTEM Status: Acute - Plan PT/OT, out of bed/ambulate, DVT proph w/SCDs Clinically better.cont supportive care -: advance diet as tolerated.encouraged ambulation -: CA 125 sent. Appreciate GS input -: will discuss w Dr. Brown on weekday -: Monitor CBC as falling post chemoRx.HD stable * . Review of Systems - Review of Systems Constitutional: weakness, malaise. negative: fever, chills, sweats, other ENT: negative: Ear Pain, Ear Discharge, Nose Pain, Nose Discharge, Nose Congestion, Mouth Pain, Mouth Swelling, Throat Pain, Throat Swelling, Other Respiratory: negative: Cough, Dry, Shortness of Breath, Hemoptysis, SOB with Excertion, Pleuritic Pain, Sputum, Wheezing Cardiovascular: negative: chest pain, palpitations, orthopnea, paroxysmal nocturnal dyspnea, edema, light headedness, other Gastrointestinal: Abdominal Pain. negative: Nausea, Vomiting, Diarrhea, Constipation, Melena, Hematochezia, Other Genitourinary: negative: Dysuria, Frequency, Incontinence, Hematuria, Retention , Other Musculoskeletal: negative: Neck Pain, Shoulder Pain, Arm Pain, Back Pain, Hand Pain, Leg Pain, Foot Pain, Other Skin: negative: Rash, Lesions, Vel, Bruising, Other Neurological: negative: Weakness, Numbness, Incoordination, Change in Speech, Confusion, Seizures, Other - Medications/Allergies Allergies/Adverse Reactions: Allergies Allergy/AdvReac Type Severity Reaction Status Date / Time Sulfa (Sulfonamide Allergy Intermediate Rash Verified 06/27/18 13:37 Antibiotics) Medications: Current Medications Enoxaparin Sodium (Lovenox) 40 mg SC 2100 [facility] Last Admin: 11/15/18 20:02 Dose: 40 mg Fluoxetine HCl (Prozac) 40 mg PO DAILY [facility] Last Admin: 11/16/18 11:44 Dose: Not Given Hydralazine HCl (Apresoline) 10 mg SLOW IVP Q4H PRN PRN Reason: SBP > 180 and HR < 70 Lactated Ringer's (Lactated Ringer's) 1,000 mls @ 125 mls/hr IV .Q8H [facility] Last Admin: 11/16/18 11:44 Dose: Not Given Ketorolac Tromethamine (Toradol) 30 mg IVP Q6H PRN PRN Reason: Pain Stop: 11/20/18 12:47 Last Admin: 11/16/18 00:04 Dose: 30 mg Morphine Sulfate (Morphine) 4 mg SLOW IVP Q2H PRN PRN Reason: Pain Last Admin: 11/16/18 12:03 Dose: 4 mg Ondansetron HCl (Zofran) 4 mg IVP Q6H PRN PRN Reason: Nausea/Vomiting Last Admin: 11/15/18 14:12 Dose: 4 mg Pantoprazole Sodium (Protonix) 40 mg IVP DAILY [facility] Last Admin: 11/16/18 08:24 Dose: Not Given Polyethylene Glycol (Miralax) 17 gm PO BID [facility] Last Admin: 11/16/18 08:22 Dose: Not Given Promethazine HCl (Phenergan) 25 mg PO Q6H PRN PRN Reason: Nausea Sodium Chloride ([place] Nasal [place] 0.65%) 0 ml EA NARE QIDPRN PRN PRN Reason: Nasal Congestion Trazodone HCl (Desyrel) 100 mg PO HS PRN PRN Reason: Insomnia
--- NOTE | 2018-11-16 13:43 | PRG ---
DATE OF SERVICE: 11/16/2018 SUBJECTIVE: Vivienne Fong is doing well today. Her small-bowel follow-through was normal. She is tolerating a regular diet. In fact, I have not seen her today, as when I stopped by to see her, she is heading to the cafeteria to get something else to eat. Nurses report that her abdominal pain is baseline per her gynecological malignancy. She is having frequent bowel movements. Her vital signs are normal. At this point, I will see her as needed. The patient is ready to be discharged home today from my standpoint. She can follow up with Dr. 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 Bradford, her oncologist. I will see her as needed in this hospitalization. Job ID: [id number]
[2018-11-16] MEDS: Enoxaparin Sodium 40 MG/0.4 ML SYRINGE SC SCH (20:06)
[2018-11-17] MEDS: Morphine 4 MG/ML VIAL SLOW IVP PRN ×4 (03:25→12:38)
[2018-11-17] MEDS: Lactated Ringer's 1,000 ML IV SCH ×2 (05:20→12:12)
[2018-11-17 07:43] VITALS: TEMP 97.9
[2018-11-17] MEDS: Pantoprazole 40 MG VIAL IVP SCH (08:36)
[2018-11-17] MEDS: Polyethylene Glycol 3350 17 GM Packet PO SCH (08:37)
[2018-11-17] MEDS: FLUoxetine HCl 20 MG CAP PO SCH (08:37)
[2018-11-17 11:54] VITALS: BP 126/81
--- NOTE | 2018-11-17 13:14 | DIS ---
DATE OF ADMISSION: 11/15/2018 DATE OF DISCHARGE: 11/17/2018 CONDITION: At the time of discharge, stable and improved. PRIMARY CARE PHYSICIAN: Heriberto Bennett MD. PRIMARY ONCOLOGIST: Dr. Stevo Bradford. DISCHARGE DISPOSITION: Home. DISCHARGE DIAGNOSES: 1. Partial small bowel obstruction, resolved. 2. Peritoneal carcinomatosis and cervical cancer, status post total abdominal hysterectomy and bilateral salpingo-oophorectomy. 3. Depression. 4. Arthritis. 5. Chronic obstructive pulmonary disease. 6. Tobacco abuse. DISCHARGE MEDICATIONS: Discharge medications remain the same as the admission medication. No changes were made. She is on following; Prozac 40 mg daily, [place] p.r.n., trazodone 100 mg at bedtime p.r.n., Phenergan p.r.n., ibuprofen p.r.n., morphine IR 15 mg p.o. b.i.d. p.r.n. IN-HOUSE CONSULTATION: General Surgery, Dr. Saenz. PROCEDURES DONE IN THE HOSPITAL: 1. Acute abdominal series, which shows NG tube lying over the body or antral region of the stomach. 2. CT scan of the abdomen and pelvis done at [facility], which shows interval development of borderline size dilated small bowel loops, possibly ileus or obstruction and minimal residual omental nodular infiltration at the low abdomen and pelvis. 3. Small-bowel follow-through, which does not show any obstruction or dilatation. 4. Repeat abdominal x-ray on 11/16/2018, which once again showed no small bowel dilatation and the contrast from the previous small-bowel follow-through entirely within the colon. HISTORY OF PRESENTING ILLNESS: Ms. Fong is a 58-year-old female with known history of peritoneal carcinomatosis with diagnosis of cervical cancer, who underwent surgery of DAWIT-BSO with Dr. Lolly Leach in [place] and follows up with Dr. Bradford for chemotherapy locally: Presented to the emergency room with complaints of abdominal pain. A CT scan was done in [facility], which was concerning for ileus versus developing obstruction and she was admitted to Medical Services for further evaluation and care. Please see admission history and physical dictated by myself on the day of admission. HOSPITAL COURSE: General Surgery was consulted and Dr. Saenz saw the patient. Her small-bowel follow-through and abdominal x-rays were checked. She had brief treatment with NG tube for few hours, which was removed later, and the small bowel follow-through did not show any persistent dilatation or obstruction. She is walking in the hallways and has been having normal bowel movement and is on a regular diet and is cleared for discharge from General Surgery perspective. As per the request of the patient, I talked to her Gynecology/Oncology doctor, Dr. Lolly Leach in [place] in [facility] and Dr. Leach at this time has no further recommendation based on her history provided by myself over the phone. The patient is encouraged to keep her followup appointment with Dr. Leach, three days from now. She was seen and examined prior to discharge. Discharge plan was discussed with the patient and she said that she has no discharge needs and declined home health with discharge. Palliative care team has been consulted for emotional support and they will see the patient prior to discharge as well. PHYSICAL EXAMINATION: She was seen and examined this morning; VITAL SIGNS: Stable. Blood pressure 126/81, respirations are 16, saturating 99% on room air, heart rate 90, afebrile. GENERAL: No acute distress. CHEST: Clear to auscultation bilaterally. HEART: Rate and rhythm are regular. FOLLOWUP: She will follow up with Dr. Bradford with repeat CBC and BMP and continue her chemotherapy as prior and will follow up with Dr. Lolly Leach as well. All the questions were answered and the patient was discharged. Job ID: [id number]
== END 2018-11-17 13:36 | disposition home or self-care (01) ==
LOC: ERS 03:43 → SURG A 06:00
PROVIDERS: ADMIT Hospitalist; ATTEND Hospitalist
DX: K56.600 Partial intestinal obstruction, unspecified as to cause (principal); C78.6 Secondary malignant neoplasm of retroperitoneum and peritoneum; F17.210 Nicotine dependence, cigarettes, uncomplicated; F32.9 Major depressive disorder, single episode, unspecified; J44.9 Chronic obstructive pulmonary disease, unspecified; M19.90 Unspecified osteoarthritis, unspecified site; Z85.41 Personal history of malignant neoplasm of cervix uteri; Z88.2 Allergy status to sulfonamides
CPT/HCPCS: 36415; 43762; 74019; 74022; 74250; 80048; 85025; 86304; 96361; 96372; 96374; 96375; 96376; C9113; G0378; J0131; J1170; J1650; J1885; J2270; J2405; Q9963; S0028

== ENCOUNTER 2018-11-28 10:23 | Day surgery (SDC) | payer OTHER ==
[2018-11-28] MEDS ORDERED: Sodium Chloride 0.9% 20 ML ONE (10:27)
[2018-11-28] MEDS ORDERED: Palonosetron HCl 0.25 MG in Sodium Chloride 0.9% 50 ML IVPB SCH (11:00)
[2018-11-28] MEDS ORDERED: diphenhydrAMINE 50 MG in Sodium Chloride 0.9% 50 ML IVPB SCH (11:00)
[2018-11-28] MEDS ORDERED: Famotidine/PF 20 MG in Sodium Chloride 0.9% 50 ML IVPB SCH (11:00)
[2018-11-28] MEDS ORDERED: Dexamethasone 20 MG in Sodium Chloride 0.9% 50 ML IVPB SCH (11:00)
[2018-11-28] MEDS ORDERED: SODIUM CHLORIDE 0.9% IVPB SCH (11:30)
[2018-11-28] MEDS ORDERED: CARBOPLATIN IVPB SCH (11:30)
[2018-11-28 13:02] VITALS: BP 148/89; TEMP 97.7
== END 2018-11-28 16:41 | disposition home or self-care (01) ==
LOC: ONC/OP 10:23
PROVIDERS: ATTEND Internal Medicine Hematology & Oncology
DX: Z51.11 Encounter for antineoplastic chemotherapy (principal); C48.1 Malignant neoplasm of specified parts of peritoneum; Z88.2 Allergy status to sulfonamides
CPT/HCPCS: 96375; 96413; 96415; 96417; J1100; J1200; J1642; J2469; J7050; J9045; J9267; S0028

== ENCOUNTER 2019-03-16 07:29 | Outpatient (CLI) | payer OTHER, SELFPAY ==
--- NOTE | 2019-03-16 08:34 | CT ---
CT CHEST WITH IV CONTRAST CT ABDOMEN WITH IV CONTRAST CT PELVIS WITH IV CONTRAST: HISTORY: Ovarian cancer. Status post chemotherapy. COMPARISON: CT chest, abdomen and pelvis of 08/25/[address] abdomen and pelvis of 02/08/2019. FINDINGS: No evidence of mediastinal, hilar, axillary, abdominal or pelvic lymphadenopathy is seen. There are v ascular calcifications without evidence of aneurysmal dilatation of the thoracoabdominal aorta. No osteolytic or osteoblastic lesions are seen. The 4 mm nodule in the right upper lobe and 7 mm pleural-based nodule in the posteromedial aspect of the right lower lobe are stable. No new lung nodules are seen. Calcified granuloma in the left lower lobe is again seen. Interstitial fibrotic changes involving the periphery of the lungs are rede monstrated. No pleural or pericardial effusions are seen. There is no evidence of ascites. Changes of fatty infiltration of the liver are again seen. No hepatic mass is noted. The patient is p ost cholecystectomy, hysterectomy and oophorectomy. The spleen, pancreas, adrenal glands and kidneys are normal. No peritoneal carcinomatosis is identified. The small bowel loops are not abnorma lly dilated. A normal-appearing appendix is present. There is mild sigmoid diverticulosis. IMPRESSION: No evidence of metastatic disease.
[2019-03-16] MEDS ORDERED: ISOVUE-370 76%-LOCM 1 ML ONE (16:14)
== END 2019-03-16 07:30 | disposition home or self-care (01) ==
LOC: BICCT 07:29
PROVIDERS: ATTEND Internal Medicine Hematology & Oncology
DX: C56.9 Malignant neoplasm of unspecified ovary (principal); C48.1 Malignant neoplasm of specified parts of peritoneum
CPT/HCPCS: 71260; 74177; Q9966

== ENCOUNTER 2019-06-08 07:38 | Outpatient (CLI) | payer OTHER ==
--- NOTE | 2019-06-08 10:38 | CT ---
CT OF THE CHEST AND ABDOMEN AND PELVIS WITH IV CONTRAST: INDICATION: A 59-year-old female with a history of ovarian cancer with metastases to the peritoneum and concern f or recurrent disease. CONTRAST: 70 cc of Isovue 370. COMPARISON: CT of the chest, abdomen, and pelvis dated 03/16/[address] of the abdomen and pelvis dated 02/09/20 19 and 11/15/2018. Comparison is also made with a CT of the chest, abdomen, and pelvis dated 06/02/20 18. FINDINGS: Scattered emphysema is stable. The small subpleural pulmonary nodule in the right lower lobe on imag e 40 of series 3 has been stable since 2018. The tiny sub-4 mm pulmonary nodule involving the right lung apex is stable with a small area of scarring seen adjacent to the nodular density. No new pulmo nary nodule or pleural effusion is evident. No pathologically enlarged lymph nodes are evident. The re are coronary artery and thoracic aortic calcifications. No focal hepatic lesion is evident. The gallbladder is surgically absent. The pancreas and adrenal glands are normal-appearing. The spleen is normal-appearing. No focal renal lesion is demonstrated. There are moderate calcifications involving the abdominal aorta. No pathologically enlarged lymph no russ are seen within the upper abdomen or retroperitoneum. No free fluid is evident. No definite omental nodularity is demonstrated. There are a few scattered diverticula involving the colon. The uterus is surgically absent. The ovaries are surgically absen t. No pathologically enlarged lymph nodes are evident within the pelvis. No definite suspicious osteolytic or osteoblastic lesion is identified. IMPRESSION: 1. No overt evidence to suggest recurrent disease or metastatic disease. 2. Stable right lung pulmonary nodules and emphysematous change. 3. Other stable chronic findings as above. POS: [facility]
== END 2019-06-08 07:39 | disposition home or self-care (01) ==
LOC: BICCT 07:38
PROVIDERS: ATTEND Internal Medicine Hematology & Oncology
DX: C56.9 Malignant neoplasm of unspecified ovary (principal); R91.8 Other nonspecific abnormal finding of lung field; I70.0 Atherosclerosis of aorta; Z90.710 Acquired absence of both cervix and uterus; Z90.49 Acquired absence of other specified parts of digestive tract
CPT/HCPCS: 71260; 74177

== ENCOUNTER 2019-11-15 06:13 | Observation (INO) | payer OTHER ==
[2019-11-15 06:41] LABS: Bilirubin Negative (Negative); Blood, Urine Negative (Negative); Clarity Clear (Clear); Glucose, Urine (Dipstick) Normal (Negative); Leukocyte Negative Leu/uL (Negative); Nitrite Negative (Negative); Protein, Urine (Dipstick) Negative (Neg-Trace); Urobilinogen Normal mg/dL (Less than 2)
[2019-11-15 08:30] VITALS: BMI 28.1
[2019-11-15] MEDS ORDERED: HYDROcodone/Acetaminophen 5/325 mg Tablet PO PRN ×2 (08:38)
[2019-11-15] MEDS ORDERED: Ondansetron PF 4 MG/2 ML Vial IVP PRN (14:19)
--- NOTE | 2019-11-15 14:20 | PDOC.HHP ---
Hospitalist HPI - History of Present Illness abdominal pain History of Present Illness: This is a 59 year old female with past medical history of cervical cancer with mets to peritoneum in remission, COPD who presented with abdominal pain. The patient states she was having abdominal pain intermittently for the past one month. She states earlier this month she had shingle and thought the pain was soley from that. However on Saturday she states the pain was so severe that she couldn't take it anymore. Her pain is sharp,stabbing in her epigastric and RUQ area not radiating. She went to [facility] yesterday and had a CT abdomen that showed mild intra and extra hepatic bile duct dilation therefore she was sent here for further workup. She reports cholecystectomy in the past. She denies travel history, eating undercooked meat, fevers, chills, blood in stools,no constipation or diarrhea. She reports no exacerbating factors , but pain alleviating by holding her stomach. SHe has no nausea or vomiting. No urinary frequency, urgency or dysuria. She denies chest pain or shortness of breath. ED Course: The patient was afebrile on arrival, BP 132/100. The patient had CT abdomen which showed mild intra and extra hepatic biliary dilation at [facility]. She was transferred here for further workup. Hospitalist ROS - Review of Systems Constitutional: denies: fever, chills ENT: denies: ear pain, ear discharge Respiratory: denies: cough, dry, shortness of breath Cardiovascular: denies: chest pain, palpitations, orthopnea Gastrointestinal: denies: nausea, vomiting, abdominal pain, diarrhea Musculoskeletal: denies: neck pain, shoulder pain, arm pain Skin: denies: rash, lesions Neurological: denies: weakness, numbness, incoordination - Medication Medications: Active Medications Generic Name Dose Route Start Last Admin Trade Name Freq PRN Reason Stop Dose Admin Hydrocodone Bitart/Acetaminophen 2 tab 11/15/19 08:38 11/15/19 11:08 [place] 5/325 PO 11/15/19 18:00 2 tab Q6H PRN Administration Moderate to Severe Pain (6-10) Hospitalist History - Past Medical History Other Medical History: Cervical Cancer with metastases to to peritoneum in the past - in remission COPD - Past Surgical History Past Surgical History: reports: Cholecystectomy, , Hysterectomy - Family History Family History: reports: cancer (in her family) - Social History Smoking Status: Current every day smoker (1 pack per day) Alcohol: reports: None (former alcohol user) - Exam General Appearance: NAD, awake alert Eye: PERRL, anicteric sclera ENT: normocephalic atraumatic, no oropharyngeal lesions Neck: supple, symmetric, no JVD Heart: RRR, no murmur, no gallops, no rubs Respiratory: CTAB, no wheezes, no rales, no ronchi Gastrointestinal: soft Gastrointestinal - other findings: RUQ tenderness. Healed shingles rash on right side of abdomen Extremities: no cyanosis, no clubbing, no edema Skin: normal turgor, no lesions, no rashes Neurological: cranial nerve grossly intact, normal sensation to touch, no focal deficits, no new deficit Hospitalist Results - Labs Lab results: Urine Ketones Negative mg/dL (Negative) 11/15/19 06:26 Urine Blood Negative (Negative) 11/15/19 06:26 Urine Nitrite Negative (Negative) 11/15/19 06:26 Ur Leukocyte Esterase Negative Leslie/uL (Negative) 11/15/19 06:26 Hospitalist H&P A/P - Plan Plan: This is a 59 year old female with history of cervical cancer with metastases to peritoneum who presents with abd pain, transferred here for transaminitis Abd pain - possibly hepatic related vs neuropathic pain? Transaminitis - CT abd showed mild intra and extra hepatic biliary dilation. AST 72, ALT 117 , ALP 161 - unable to do MRI abdomen today. Will order US abdomen - will check hepatitis panel - consider antibiotics if spikes fever, but will hold off for now - will order IV fluids - GI consult - morphine prn for pain - will order gabapentin for pain in the evening this is neuropathic from prior shingles? Cervical cancer with met to peritoneum - currently in remission by CT abdomen DVT prophylaxis: will hold for now Code status: full code
[2019-11-15] MEDS ORDERED: Gabapentin 100 MG CAP PO SCH (14:45)
[2019-11-15] MEDS: Dextrose 5 % And 0.9 % NaCl 1,000 ML IV SCH (15:34)
[2019-11-15 15:38] LABS: HBCM Index 0.07 S/CO (0-0.79); HBSAg Index 0.27 S/CO (0-0.99); Hep A IgM AB Non-Reactive (NonReactive); Hep A IgM S/CO 0.12 S/CO (0-0.79); Hep B Surf Ag Non-Reactive S/CO (NonReactive); Hep C IgG Ab Non-Reactive (NonReactive); Hep C Index 0.05 S/CO (0-0.79); Hepatitis B Core IgM Abs Non-Reactive (NonReactive)
[2019-11-15] MEDS: Morphine 2 MG/ML SYRINGE SLOW IVP PRN ×3 (15:48→23:40)
--- NOTE | 2019-11-15 15:53 | ULT ---
Exam: Right upper quadrant ultrasound: HISTORY: Right upper quadrant abdominal pain. Transaminitis. COMPARISON: CT abdomen on 11/15/2019 at 0328 hours. FINDINGS: Liver: Increased echogenicity suggesting diffuse fatty infiltration. No focal hepatic lesion is ident ified. Gallbladder: Not visualized compatible with history of prior cholecystectomy. Common bile duct: The common duct measures 0.8 cm on this examination. The common duct on recent CT s can examination was larger in diameter measuring 1.3 cm. No intrahepatic biliary ductal dilatation is appreciated on this exam. Pancreas: Mostly obscured but where visualized is a grossly normal sonographic appearance. Right kidney: Right kidney demonstrates a normal sonographic appearance. The right kidney measures 8 .6 cm. Renal cortical thickness is borderline. IVC: The visualized IVC demonstrates a normal sonographic appearance. IMPRESSION: 1. Fatty infiltration of the liver. 2. Postcholecystectomy changes. The common duct is normal in caliber for postcholecystectomy changes measuring 0.8 cm in diameter. However, the common duct was more dilated on the recent CT scan examination with the diameter of the common duct measuring 1.3 cm.
--- NOTE | 2019-11-15 19:02 | CON ---
DATE OF CONSULTATION: 11/15/2019 CHIEF COMPLAINT: Abdominal pain. HISTORY OF PRESENT ILLNESS: Ms. Fong is a 59-year-old woman who had onset of right upper quadrant severe aching abdominal pain, radiated around to the right side on 10/14. On , she broke out with a rash consistent with shingles and she went to the emergency room for further care. She was diagnosed with shingles and started on Valtrex and gabapentin. Since then, the rash blistered and then scabbed over and now the rash is more of a raised red area and appears to be healing. She has had ongoing pain related to the shingles. She has been back to the emergency room for different times with pain. A week ago, the pain changed, such that it became a sharp stabbing pain in the right upper quadrant, that shoots straight through. She has had no nausea or vomiting with this. Eating does not affect the pain. The bowel movement does not affect the pain. She has had normal daily brown stools. She did have some blood in the stool back in July, it was bright red and stained her underwear, but that resolved. She has been eating well today without any problems, but she continues to get waves of the pain. Pain is always at least a 3/10 at baseline and then will intensify to 10/10 for minutes at a time. She states that the pain is unbearable and feels like this must be something else other than shingles causing her pain. PAST MEDICAL HISTORY: 1. Ovarian cancer, stage IIIC with peritoneal carcinomatosis, treated with hysterectomy and chemotherapy. Her last chemotherapy was in 11/2018, and she has been getting followup CT scans every 3 months since then. 2. She had EGD and colonoscopy in 04/[address] Alec uQintanilla. She was noted to have grade B erosive esophagitis and gastritis at that time. Internal and external hemorrhoids were seen. She had 3 tiny tubular adenomas removed. 3. COPD. PAST SURGICAL HISTORY: 1. Cholecystectomy. 2. . 3. Hysterectomy. FAMILY HISTORY: Positive for esophageal cancer in her father. SOCIAL HISTORY: She smokes a pack a day. Former alcohol use. No drugs. ALLERGIES: SULFA. OUTPATIENT MEDICATIONS: Include: 1. Gabapentin. 2. [place]. 3. Phenergan. REVIEW OF SYSTEMS: Negative x10 systems reviewed except as stated in the history of present illness. PHYSICAL EXAMINATION: VITAL SIGNS: Temperature 97.7, pulse 86, and blood pressure 100/67. GENERAL: She is in no acute distress. Alert and oriented x3. HEENT: Eyes have no scleral icterus. Oropharynx is clear without lesions. No cervical or supraclavicular lymphadenopathy. LUNGS: Clear to auscultation bilaterally. HEART: Regular rate and rhythm without murmur. ABDOMEN: Soft. She does have some tenderness in the right upper quadrant, but no change with inspiration. Bowel sounds are present. EXTREMITIES: No lower extremity edema. NEUROLOGIC: Cranial nerves are grossly intact. LABORATORY DATA: White blood cell count 5.8, hemoglobin 14.4, and platelets 221. Creatinine 0.76, bilirubin 0.3, AST 72, ALT 117, alkaline phosphatase 161, and albumin 4.2. IMAGING STUDIES: Dilation of the biliary tree, mainly the common bile duct, is seen up to 1.3 cm post cholecystectomy. IMPRESSION: 1. Right upper quadrant abdominal pain. This is most likely secondary to shingles. The pain, however, changed a week ago and the patient convinced for something else going on. This is different than the original shingles pain, and therefore, we will investigate this further. She has been to the emergency room multiple times and is worried about going home without investigating this further. 2. Abnormal imaging of the CT scan of the abdomen with dilated bile ducts. This is most likely post cholecystectomy change. 3. Abnormal liver function tests. Her transaminases and alkaline phosphatase are elevated with a normal bilirubin. This is a mixed cholestatic and hepatocellular injury pattern. She did have a CT scan back in September, at which time her bile ducts were less dilated and her alkaline phosphatase was normal. Going back to May, her alkaline phosphatase was elevated and again the bile ducts were more dilated. It would be reasonable to rule out a retained stone in the common bile duct at this point given the right upper quadrant pain and dilation of the bile duct that seems to potentially correlate with elevated alkaline phosphatase. Her pain, however, is not affected by eating and again I think this is more likely due to the shingles. 4. Varicella zoster. RECOMMENDATIONS: 1. MRCP tomorrow. 2. If the MRCP is negative, then no further GI intervention will be indicated at this point. 3. The patient is noted to have had an episode of hematochezia back in July. She just had a colonoscopy in 04/2018, that showed internal and external hemorrhoids and only 3 tiny adenomatous polyps. Her recent bleeding was consistent with hemorrhoidal bleeding and her hemoglobin is normal. No further intervention will be required until she is due for surveillance colonoscopy for the polyps. 4. Dr. Quintanilla should be back tomorrow. Job ID: [id number]
[2019-11-16] MEDS: Morphine 2 MG/ML SYRINGE SLOW IVP PRN ×3 (03:52→12:44)
[2019-11-16] MEDS: Dextrose 5 % And 0.9 % NaCl 1,000 ML IV SCH (05:55)
[2019-11-16 07:54] VITALS: TEMP 97.4
[2019-11-16] MEDS ORDERED: Gabapentin 100 MG CAP PO SCH ×2 (09:00)
[2019-11-16 10:28] LABS: #Basophils 0.1 thou/uL (0.0-0.2); #Eosinphils 0.1 thou/uL (0.0-0.7); #Lymphocytes 1.6 thou/uL (1.20-3.40); #Monocytes 0.4 thou/uL (0.11-0.59); #Neutrophils 2.2 thou/uL (1.40-6.50); %Basophils 1.3 % (0.0-1.0); %Eosinophils 2.1 % (0.0-10.0); %Lymphocytes 37.5 % (21.0-51.0); %Monocytes 8.1 % (0.0-10.0); Hemoglobin 14.2 g/dL (12.0-16.0); Mean Corpuscular HGB CONC 33.2 g/dL (32.0-36.0); Mean Corpuscular Hemoglobin 31.8 pg (27.0-31.0); Mean Corpuscular Volume 95.7 fL (78.0-98.0); Mean Platelet Volume 6.7 fL (7.4-10.4); Platelet Count 215 thou/uL (130-400); RBC Distribution Width 13.2 % (11.5-14.5); Red Blood Cell (RBC) Count 4.46 mill/uL (4.20-5.40); White Blood Cell (WBC) Count 4.4 thou/uL (4.8-10.8)
[2019-11-16 10:44] LABS: ALT (SGPT) 94 U/L (8-55); AST (SGOT) 35 U/L (5-34); Albumin 4.1 g/dL (3.5-5.0); Alkaline Phosphatase 137 U/L (40-110); Anion Gap 12 mmol/L (10-20); BUN (Urea Nitrogen) 9 mg/dL (9.8-20.1); Bilirubin, Total 0.3 mg/dL (0.2-1.2); Calc. Creatinine Clearance 93 mL/min (70-130); Calcium 9.4 mg/dL (7.8-10.44); Carbon Dioxide 23 mmol/L (22-29); Chloride 107 mmol/L (98-107); Estimated GFR-MDRD 88; Globulin 3.1 g/dL (2.4-3.5); Glucose 102 mg/dL (70-105); Potassium 4.2 mmol/L (3.5-5.1); Protein, Total 7.2 g/dL (6.0-8.3); Sodium 138 mmol/L (136-145)
[2019-11-16 12:14] VITALS: BP 144/90
[2019-11-16] MEDS ORDERED: Ibuprofen 600 MG TAB PO PRN (12:16)
[2019-11-16] MEDS ORDERED: Polyethylene Glycol 3350 17 GM Packet PO SCH (12:30)
--- NOTE | 2019-11-16 13:26 | PRG ---
DATE OF SERVICE: 11/16/2019 SUBJECTIVE: Ms. Fong feels a little better today. Still she is having intermittent episodes of the right upper quadrant abdominal pain. OBJECTIVE: VITAL SIGNS: Temperature 97.4, pulse 86, blood pressure 144/90. GENERAL: She is in no acute distress. Alert and oriented x3. LUNGS: Clear to auscultation bilaterally. HEART: Regular rate and rhythm without murmur. ABDOMEN: Soft, nontender, nondistended. Bowel sounds are present. EXTREMITIES: No lower extremity edema. LABORATORY DATA: Bilirubin 0.3, AST 35, ALT 94, alkaline phosphatase 137. IMPRESSION: 1. Right upper quadrant pain secondary to herpes zoster. 2. Elevated liver tests are chronic. Her alkaline phosphatase did trend down slightly today. These have been similarly elevated for years. Given the dilated bile ducts and the new change in the right upper quadrant pain, we will rule out common bile duct stone. RECOMMENDATIONS: 1. MRCP today. 2. If the MRCP is negative for a biliary stone, then she should discharge home today with focus on symptomatic treatment of the zoster. Job ID: [id number]
[2019-11-16] MEDS ORDERED: Gabapentin 300 MG CAP PO SCH (15:00)
--- NOTE | 2019-11-16 16:40 | MRI ---
MRI ABDOMEN WITHOUT CONTRAST: Comparison: CT abdomen and pelvis, 11-15-2019; gallbladder ultrasound 11-15-2019 History: Elevated LFTs/tarsadenitis. Biliary dilatation seen on ultrasound. Technique: Multiplanar, multisequence MR images were obtained of the abdomen without contrast. MRCP i mages were performed with 3D rotation reformats. FINDINGS: The gallbladder has been removed. There is enlargement of the common bile duct to 11 mm. No filling d efects are seen within the common bile duct. There is mild central intrahepatic biliary dilatation. Pancreatic duct is normal in size. The kidneys, adrenal glands, spleen, and pancreas are unremarkable . There is diffuse loss of signal in [id number] images in the liver consistent with fatty infiltratio n. There is focal fatty spurring in the caudate lobe and surrounding the portahepatis. No abdominal adenopathy is seen. No marrow signal abnormality is present. IMPRESSION: 1. Fatty liver. 2. Enlargement of the biliary tree is likely a reservoir effect from prior cholecystectomy. POS: EAA
--- NOTE | 2019-11-16 17:26 | DIS ---
DATE OF ADMISSION: 11/15/2019 DATE OF DISCHARGE: 11/16/2019 CONSULTATIONS: Dr. Demar Bland with GI. PROCEDURES: Ultrasound and MRCP. BRIEF HISTORY OF PRESENT ILLNESS: This is a 59-year-old female with a past medical history of cervical cancer with metastases to her peritoneum and COPD, who presented with right upper quadrant pain for the past 1 month. The patient states that she had recently had shingles in the same area, however, her rash was healing. However, her pain had persisted. She had a CT scan of her abdomen done at [facility] that showed mild intra and extrahepatic biliary duct dilation as well as transaminitis. She was sent here for further workup. HOSPITAL COURSE: Abdominal pain/transaminitis possibly secondary to a passed stone versus excessive Tylenol use versus neuropathic pain from shingles: The patient had an ultrasound done of her abdomen on 11/14 which showed a fatty liver and the common duct measured 0.8 cm. Her LFTs were elevated with AST of 72, ALT of 117, alkaline phosphatase of 161. The patient states that she had been taking [place] for her shingles pain and is taking gabapentin 800 mg p.o. t.i.d., but stated that it was only providing partial relief. She reported no relief in her pain when she was taking Valtrex. While in the hospital, she received only one dose of hydrocodone and thereafter received morphine IV p.r.n. She had an MRI of her abdomen which showed no filling defects and enlargement of the common bile duct to 11 mm, which is likely a reservoir effect from her prior cholecystostomy. The patient's LFTs improved on the day of discharge, and she reports that her abdominal pain has improved slightly as well. She does report some constipation but refused a laxative. She was advised to reduce her hydrocodone intake and to take Aleve, gabapentin and the [place] at staggering doses. It is possible that her LFTs were slightly elevated from the acetaminophen and the hydrocodone. The patient was advised to lose weight for her fatty liver and to have her LFTs repeated in a week with her PCP. DISCHARGE PHYSICAL EXAMINATION: VITAL SIGNS: Temperature 97.4, heart rate 86, respiratory rate 20, O2 saturation 96% on room air, blood pressure 144/90. GENERAL: The patient is alert, awake, oriented x3. CVS: Regular rate and rhythm with no murmurs, rubs, or gallops. LUNGS: Clear to auscultation bilaterally. ABDOMEN: Positive bowel sounds, soft, mild right upper quadrant tenderness. No guarding, rebound, or rigidity. No distention. She has a healing shingles rash in the right side of her abdomen. EXTREMITIES: No edema. PERTINENT LABORATORY DATA: CBC on 11/15: White count 4.4, hemoglobin 14.2, hematocrit 42.7, MCV 95.7. CMP: AST went from 72 to 35, ALT improved from 117 to 94, alkaline phosphatase improved from 161 to 137. Rest of CMP, unremarkable. UA on 11/14: Unremarkable. Hepatitis serology on 11/14: Normal. PERTINENT IMAGING: US Abdomen 11/14: fatty liver MRI Abdomen 11/14: fatty liver .Enlargement of biliary tree likely from prior cholecystectomy DISCHARGE CONDITION: Stable. ACTIVITY: As tolerated. DIET: Regular diet. DISCHARGE MEDICATIONS: The patient's home medications were resumed. She was advised to alternate her gabapentin, hydrocodone, and Advil to avoid overdosing on any one medication. She should have her LFTs repeated in a week with her PCP. She should have followup ultrasound in 6 months to reassess her fatty liver. Job ID: [id number] [facility]
[2019-11-17] MEDS ORDERED: Polyethylene Glycol 3350 17 GM Packet PO SCH (09:00)
== END 2019-11-16 18:25 | disposition home or self-care (01) ==
LOC: ERS 06:13 → T4-A 08:16
PROVIDERS: ADMIT Internal Medicine; ATTEND Internal Medicine
DX: B02.9 Zoster without complications (principal); R74.0 Nonspecific elevation of levels of transaminase and lactic acid dehydrogenase [LDH]; J44.9 Chronic obstructive pulmonary disease, unspecified; F17.210 Nicotine dependence, cigarettes, uncomplicated; Z79.899 Other long term (current) drug therapy; Z88.2 Allergy status to sulfonamides
CPT/HCPCS: 36415; 74181; 76705; 80053; 80074; 81003; 85025; 96374; 96376; 99285; G0378; J2270

== ENCOUNTER 2019-12-21 06:59 | Outpatient (CLI) | payer OTHER ==
[2019-12-21] MEDS ORDERED: Iopamidol 370 76% 100 ML VIAL ONE (08:59)
--- NOTE | 2019-12-21 09:01 | CT ---
EXAM: CT chest, abdomen, and pelvis with IV contrast: HISTORY: Peritoneal cancer COMPARISON: CT chest, abdomen, and pelvis on 06/08/[address] abdomen and pelvis on 11/15/2019 FINDINGS: CT THORAX: Lungs: Stable emphysematous changes are seen in the lungs bilaterally. In addition, there are are sta ble peripherally located interstitial densities likely due to chronic interstitial fibrotic lung changes. A stable 7 mm pleural-based nodular density at the posterolateral right lower lobe. A small approximately 4 mm nodular density at the right lung apex with associated stable area of linear density extending to the periphery is again present likely due to an area of mild scarring. A few add itional very tiny less than 4 mm pleural-based nodular densities are seen on the right. Stable 4 mm nodular density is seen at the right lateral costophrenic angle. No consolidation is seen. Pleura: No pleural effusion. Lymph nodes: No lymphadenopathy. Mediastinum: A right subclavian Mediport catheter is again noted in place. No enlarged mediastinal ly mph nodes are appreciated. Vascular calcifications are seen in the thoracic aorta. Chest wall: No abnormalities CT ABDOMEN AND PELVIS: Liver: Diminished attenuation similar to prior study related to fatty infiltration. No focal hepatic mass is visualized. Gallbladder: Surgically absent.\ Pancreas: Within normal limits. Spleen: Within normal limits. Adrenal glands: Within normal limits. Kidneys: Minimal scarring involving the medial aspect midportion right kidney. Kidneys otherwise have a normal CT appearance bilaterally. Urinary Bladder: The urinary bladder is unremarkable. Reproductive organs: Uterus is not visualized and likely surgically absent. Bowel: Colonic diverticulosis. Loops of small bowel are normal in caliber. Adenopathy:No lymphadenopathy within the abdomen or pelvis. Peritoneum: No free fluid or fluid collection is seen. No free intraperitoneal gas is identified. Abdominal wall: Tiny fat-containing umbilical hernia is present. Osseous structures: No suspicious lytic or sclerotic osseous lesions are noted. IMPRESSION: 1. No acute findings are seen in the chest, abdomen, or pelvis. 2. Stable mild chronic lung changes. 3. Fatty infiltration of the liver. 4. No findings to suggest metastatic disease.
== END 2019-12-21 07:00 | disposition home or self-care (01) ==
LOC: BICCT 06:59
PROVIDERS: ATTEND Internal Medicine Hematology & Oncology
DX: C48.1 Malignant neoplasm of specified parts of peritoneum (principal); K76.0 Fatty (change of) liver, not elsewhere classified
CPT/HCPCS: 71260; 74177; Q9967

== ENCOUNTER 2020-07-01 07:39 | Outpatient (CLI) | payer OTHER ==
--- NOTE | 2020-07-01 08:36 | CT ---
EXAM: CT chest, abdomen, and pelvis with IV contrast: HISTORY: Ovarian cancer. History of chemotherapy. Prior hysterectomy. COMPARISON: 12/21/2019 FINDINGS: CT THORAX: Lungs: Again noted are emphysematous changes within the lungs bilaterally with peripheral interstitia l densities again seen within the lungs bilaterally suggesting chronic interstitial fibrotic lung changes. There is a small nodule with associated linear densities at the posterior aspect right lung apex which is unchanged compared to prior study and is also stable compared to study on 06/02/2018 and is likely related to scarring. There is a pleural-based nodular density at the posteromedial righ t lung base measuring 7 mm. This pleural-based nodule has been present since study in 2018. This nodule measured 6 mm on study in 2018 and measures slightly larger in size in today's exam measuring 7 mm. No new discrete pulmonary nodule or mass is seen within the lungs bilaterally. Large airways are patent. Pleura: No pleural effusion. Lymph nodes: No enlarged lymph nodes seen by CT size criteria. Mediastinum: Right subclavian Mediport catheter remains in place. Calcified right hilar lymph node is present. Vascular calcifications are seen in the thoracic aorta. Chest wall: No abnormalities CT ABDOMEN AND PELVIS: Liver: Diminished attenuation suggesting fatty infiltration which is similar to prior study. No focal hepatic lesion is seen. Gallbladder: Surgically absent.\ Pancreas: Within normal limits. Spleen: Within normal limits. Adrenal glands: Within normal limits. Kidneys: Within normal limits. Urinary Bladder: The urinary bladder is unremarkable. Reproductive organs: Evidence of hysterectomy. Bowel: Colonic diverticulosis present. Loops of small bowel are normal in caliber. Adenopathy:No lymphadenopathy within the abdomen or pelvis. Peritoneum: No free fluid or fluid collection is seen. No free intraperitoneal gas is identified. Abdominal wall: No abnormalities seen. Osseous structures: No suspicious lytic or sclerotic osseous lesion. IMPRESSION: 1. No acute findings are seen in the chest, abdomen, or pelvis. No findings to suggest metastatic dis ease. 2. Stable chronic lung changes with a stable pleural-based nodular density at the posteromedial right lung base. 3. Fatty infiltration the liver. 4. Hysterectomy. 5. Colonic diverticulosis
[2020-07-01] MEDS ORDERED: Iopamidol-370 76% 500 ML 1 ML ONE (15:15)
== END 2020-07-01 07:40 | disposition home or self-care (01) ==
LOC: BICCT 07:39
PROVIDERS: ATTEND Internal Medicine Hematology & Oncology
DX: C56.9 Malignant neoplasm of unspecified ovary (principal); R91.8 Other nonspecific abnormal finding of lung field; K76.0 Fatty (change of) liver, not elsewhere classified; Z90.710 Acquired absence of both cervix and uterus; K57.30 Diverticulosis of large intestine without perforation or abscess without bleeding
CPT/HCPCS: 71260; 74177

== ENCOUNTER 2020-11-24 09:44 | Outpatient (CLI) | payer MEDICARE ==
[2020-11-24] MEDS ORDERED: Iopamidol 370 76% 100 ML VIAL ONE (11:21)
== END 2020-11-24 09:45 | disposition home or self-care (01) ==
LOC: CT 09:44
PROVIDERS: ATTEND Internal Medicine Hematology & Oncology
DX: C48.1 Malignant neoplasm of specified parts of peritoneum (principal); R97.1 Elevated cancer antigen 125 [CA 125]; J43.9 Emphysema, unspecified; K76.0 Fatty (change of) liver, not elsewhere classified
CPT/HCPCS: 71260; 74177; Q9967

== ENCOUNTER 2020-12-13 07:59 | Outpatient (CLI) | payer MEDICARE | END 2020-12-13 08:00 | disposition home or self-care (01) | LOC: PET 07:59 | PROVIDERS: ATTEND Obstetrics & Gynecology Gynecologic Oncology | DX: C48.2 Malignant neoplasm of peritoneum, unspecified (principal) | CPT/HCPCS: 78815; A9552 ==

== ENCOUNTER 2021-05-30 07:41 | Outpatient (CLI) | payer MEDICARE | END 2021-05-30 07:42 | disposition home or self-care (01) | LOC: PET 07:41 | PROVIDERS: ATTEND Internal Medicine Hematology & Oncology | DX: C48.1 Malignant neoplasm of specified parts of peritoneum (principal) | CPT/HCPCS: 78815; A9552 ==

== ENCOUNTER 2021-06-05 08:45 | Day surgery (SDC) | payer MEDICARE ==
[2021-06-02 15:47] VITALS: BMI 25.4
[2021-06-05 09:08] LABS: Prothrombin Time 13.7 sec (12.0-14.7)
[2021-06-05 09:09] LABS: PTT 30.6 sec (22.9-36.1)
[2021-06-05 11:19] VITALS: BP 135/76; TEMP 97.5
== END 2021-06-05 10:50 | disposition home or self-care (01) ==
LOC: CT 08:45
PROVIDERS: ATTEND Internal Medicine Hematology & Oncology
DX: R18.8 Other ascites (principal); C56.9 Malignant neoplasm of unspecified ovary; J44.9 Chronic obstructive pulmonary disease, unspecified; F17.200 Nicotine dependence, unspecified, uncomplicated; M19.90 Unspecified osteoarthritis, unspecified site; Z53.8 Procedure and treatment not carried out for other reasons; Z79.899 Other long term (current) drug therapy; Z88.2 Allergy status to sulfonamides
CPT/HCPCS: 72192; 85610; 85730

== ENCOUNTER 2021-08-15 12:51 | Outpatient (CLI) | payer MEDICARE | END 2021-08-15 12:52 | disposition home or self-care (01) | LOC: ULT 12:51 | PROVIDERS: ATTEND Internal Medicine Hematology & Oncology | DX: Z51.11 Encounter for antineoplastic chemotherapy (principal); C48.1 Malignant neoplasm of specified parts of peritoneum; I08.1 Rheumatic disorders of both mitral and tricuspid valves | CPT/HCPCS: 36415; 80053; 82248; 83615; 84100; 84550; 85025; 93306 ==

== ENCOUNTER 2021-08-23 08:33 | Day surgery (SDC) | payer MEDICARE ==
[~2021-08-23 08:33] MED LIST changes: +CARBOPLATIN IVPB SCH; +DEXTROSE 5% IVPB SCH; +DOXORUBICIN IVPB SCH; +DOXORUBICIN PEG LIPOSOMAL IVPB SCH; +Dexamethasone 10 MG in Sodium Chloride 0.9% 50 ML IVPB SCH; +PALONOSETRON HCL 0.05 MG/ML 5 ML VIAL IVP SCH; -PEGFILGRASTIM-JMDB 6 MG/0.6 ML SYRINGE SQ SCH; +Palonosetron HCl 0.25 MG in Sodium Chloride 0.9% 50 ML IVPB SCH; +SODIUM CHLORIDE 0.9% IVPB SCH; +WATER IVPB SCH
[2021-08-23] MEDS ORDERED: Sodium Chloride 0.9% 10 ML ONE (08:55)
[2021-08-23 09:09] VITALS: TEMP 97.9
[2021-08-23] MEDS: PALONOSETRON HCL 0.05 MG/ML 5 ML VIAL ONE ×2 (12:00→14:00)
[2021-08-23] MEDS ORDERED: Famotidine/PF 20 mg/2ml Vial ONE (13:44)
[2021-08-23] MEDS ORDERED: diphenhydrAMINE 50 MG/ML VIAL IVP SCH (13:45)
[2021-08-23] MEDS ORDERED: Famotidine/PF 20 mg/2ml Vial SLOW IVP SCH (13:45)
[2021-08-23] MEDS ORDERED: diphenhydrAMINE 50 MG/ML VIAL ONE (13:45)
[2021-08-23 14:22] VITALS: BP 115/58
== END 2021-08-23 15:51 | disposition home or self-care (01) ==
LOC: ONC/OP 08:33
PROVIDERS: ATTEND Internal Medicine Hematology & Oncology
DX: Z51.11 Encounter for antineoplastic chemotherapy (principal); C48.1 Malignant neoplasm of specified parts of peritoneum; Z88.2 Allergy status to sulfonamides
CPT/HCPCS: 96367; 96375; 96413; 96417; J1100; J1200; J1453; J1642; J2469; J3490; J7050; J7070; J9000; J9045; S0028

== ENCOUNTER 2021-09-25 10:24 | Day surgery (SDC) | payer MEDICARE ==
[~2021-09-25 10:24] MED LIST changes: +BEVACIZUMAB BVZR IV SCH; -DOXORUBICIN PEG LIPOSOMAL IVPB SCH; -Dexamethasone 10 MG in Sodium Chloride 0.9% 50 ML IVPB SCH; +Dexamethasone 10 MG/ML VIAL SLOW IVP SCH; -Palonosetron HCl 0.25 MG in Sodium Chloride 0.9% 50 ML IVPB SCH; +SODIUM CHLORIDE 0.9% IV SCH; +diphenhydrAMINE 50 MG/ML VIAL IVP SCH
[2021-09-25] MEDS ORDERED: Sodium Chloride 0.9% 10 ML ONE (10:40)
[2021-09-25] MEDS ORDERED: Sodium Chloride 0.9% 500 ML IVPB SCH (10:45)
[2021-09-25] MEDS ORDERED: diphenhydrAMINE 50 MG/ML VIAL ONE (10:47)
[2021-09-25] MEDS ORDERED: diphenhydrAMINE 25 MG CAP ONE (10:47)
[2021-09-25] MEDS ORDERED: PALONOSETRON HCL 0.05 MG/ML 5 ML VIAL ONE (10:48)
[2021-09-25] MEDS ORDERED: Dexamethasone Sod Phosphate 20 MG in Sodium Chloride 0.9% 50 ML IVPB SCH (11:00)
[2021-09-25 11:04] VITALS: BP 107/59; TEMP 98.5
== END 2021-09-25 14:58 | disposition home or self-care (01) ==
LOC: ONC/OP 10:24
PROVIDERS: ATTEND Internal Medicine Hematology & Oncology
DX: Z51.11 Encounter for antineoplastic chemotherapy (principal); C48.1 Malignant neoplasm of specified parts of peritoneum; Z88.2 Allergy status to sulfonamides
CPT/HCPCS: 36415; 80053; 82248; 83615; 84100; 84550; 86304; 96361; 96367; 96375; 96413; 96417; J1100; J1200; J1453; J1642; J2469; J3490; J7050; J7070; J9045; Q2050; Q5118

== ENCOUNTER 2021-10-09 10:50 | Day surgery (SDC) | payer MEDICARE ==
[~2021-10-09 10:50] MED LIST changes: -CARBOPLATIN IVPB SCH; -DEXTROSE 5% IVPB SCH; -DOXORUBICIN IVPB SCH; -Dexamethasone 10 MG/ML VIAL SLOW IVP SCH; -PALONOSETRON HCL 0.05 MG/ML 5 ML VIAL IVP SCH; -SODIUM CHLORIDE 0.9% IVPB SCH; -WATER IVPB SCH; -diphenhydrAMINE 50 MG/ML VIAL IVP SCH
[2021-10-09] MEDS ORDERED: Sodium Chloride 0.9% 10 ML ONE (11:14)
[2021-10-09 11:17] VITALS: BP 119/87; TEMP 97.9
== END 2021-10-09 13:21 | disposition home or self-care (01) ==
LOC: ONC/OP 10:50
PROVIDERS: ATTEND Internal Medicine Hematology & Oncology
DX: Z51.11 Encounter for antineoplastic chemotherapy (principal); C48.1 Malignant neoplasm of specified parts of peritoneum; Z88.2 Allergy status to sulfonamides
CPT/HCPCS: 96413; J1642; J3490; Q5118

== ENCOUNTER 2021-10-23 09:47 | Day surgery (SDC) | payer MEDICARE ==
[~2021-10-23 09:47] MED LIST changes: +CARBOPLATIN IVPB SCH; +DEXTROSE 5% IVPB SCH; +DOXORUBICIN PEG LIPOSOMAL IVPB SCH; +Dexamethasone Sod Phosphate 20 MG in Sodium Chloride 0.9% 50 ML IVPB SCH; +PALONOSETRON HCL 0.05 MG/ML 5 ML VIAL IVP SCH; +SODIUM CHLORIDE 0.9% IVPB SCH; +WATER IVPB SCH; +diphenhydrAMINE 25 MG in Sodium Chloride 0.9% 50 ML IVPB SCH
[2021-10-23 10:22] VITALS: BP 171/89; TEMP 97.7
[2021-10-23] MEDS ORDERED: PALONOSETRON HCL 0.05 MG/ML 5 ML VIAL ONE (11:02)
== END 2021-10-23 15:12 | disposition home or self-care (01) ==
LOC: ONC/OP 09:47
PROVIDERS: ATTEND Internal Medicine Hematology & Oncology
DX: Z51.11 Encounter for antineoplastic chemotherapy (principal); C48.1 Malignant neoplasm of specified parts of peritoneum; Z88.2 Allergy status to sulfonamides
CPT/HCPCS: 36415; 80053; 82248; 83615; 84100; 84550; 86304; 96367; 96375; 96413; 96417; J1100; J1200; J1453; J1642; J2469; J3490; J7050; J7070; J9000; J9045; Q5118

== ENCOUNTER 2021-11-30 07:25 | Outpatient (CLI) | payer MEDICARE | END 2021-11-30 07:26 | disposition home or self-care (01) | LOC: CT 07:25 | PROVIDERS: ATTEND Internal Medicine Hematology & Oncology | DX: C56.9 Malignant neoplasm of unspecified ovary (principal); J43.9 Emphysema, unspecified; K44.9 Diaphragmatic hernia without obstruction or gangrene; K22.89 Other specified disease of esophagus; K59.00 Constipation, unspecified; K76.0 Fatty (change of) liver, not elsewhere classified; K57.90 Diverticulosis of intestine, part unspecified, without perforation or abscess without bleeding; Z90.49 Acquired absence of other specified parts of digestive tract | CPT/HCPCS: 71260; 74177 ==

== ENCOUNTER 2021-12-18 10:03 | Day surgery (SDC) | payer MEDICARE ==
[2021-12-18] MEDS ORDERED: PALONOSETRON HCL 0.05 MG/ML 5 ML VIAL ONE (10:09)
[2021-12-18 11:04] VITALS: BP 142/77; TEMP 98.1
== END 2021-12-18 14:15 | disposition home or self-care (01) ==
LOC: ONC/OP 10:03
PROVIDERS: ATTEND Internal Medicine Hematology & Oncology
DX: Z51.11 Encounter for antineoplastic chemotherapy (principal); C48.1 Malignant neoplasm of specified parts of peritoneum; Z88.2 Allergy status to sulfonamides
CPT/HCPCS: 80053; 82248; 83615; 84100; 84550; 86304; 96367; 96375; 96413; 96417; J1100; J1200; J1453; J1642; J2469; J3490; J7050; J7070; J9000; J9045; Q5118

== ENCOUNTER 2022-01-01 07:47 | Day surgery (SDC) | payer MEDICARE ==
[~2022-01-01 07:47] MED LIST changes: -CARBOPLATIN IVPB SCH; -DEXTROSE 5% IVPB SCH; -DOXORUBICIN PEG LIPOSOMAL IVPB SCH; -Dexamethasone Sod Phosphate 20 MG in Sodium Chloride 0.9% 50 ML IVPB SCH; -PALONOSETRON HCL 0.05 MG/ML 5 ML VIAL IVP SCH; -SODIUM CHLORIDE 0.9% IVPB SCH; -WATER IVPB SCH; -diphenhydrAMINE 25 MG in Sodium Chloride 0.9% 50 ML IVPB SCH
[2022-01-01 08:12] VITALS: BP 190/89; TEMP 98.1
== END 2022-01-01 09:46 | disposition home or self-care (01) ==
LOC: ONC/OP 07:47
PROVIDERS: ATTEND Internal Medicine Hematology & Oncology
DX: Z51.12 Encounter for antineoplastic immunotherapy (principal); C48.1 Malignant neoplasm of specified parts of peritoneum; Z88.2 Allergy status to sulfonamides
CPT/HCPCS: 96413; J1642; J3490; Q5118

== ENCOUNTER 2022-01-16 10:01 | Day surgery (SDC) | payer MEDICARE, OTHER ==
[~2022-01-16 10:01] MED LIST changes: +DEXTROSE 5% IVPB SCH; +DOXORUBICIN PEG LIPOSOMAL IVPB SCH; +PALONOSETRON HCL 0.05 MG/ML 5 ML VIAL IVP SCH; +WATER IVPB SCH; +diphenhydrAMINE 25 MG in Sodium Chloride 0.9% 50 ML IVPB SCH
[2022-01-16] MEDS ORDERED: PALONOSETRON HCL 0.05 MG/ML 5 ML VIAL ONE (11:05)
[2022-01-16 11:54] VITALS: BP 137/70; TEMP 98.4
[2022-01-16] MEDS ORDERED: WATER IVPB SCH (13:15)
[2022-01-16] MEDS ORDERED: DEXTROSE 5% IVPB SCH (13:15)
[2022-01-16] MEDS ORDERED: DOXORUBICIN PEG LIPOSOMAL IVPB SCH (13:15)
[2022-01-16] MEDS ORDERED: SODIUM CHLORIDE 0.9% IVPB SCH (13:30)
[2022-01-16] MEDS ORDERED: CARBOPLATIN IVPB SCH (13:30)
== END 2022-01-16 15:43 | disposition home or self-care (01) ==
LOC: ONC/OP 10:01
PROVIDERS: ATTEND Internal Medicine Hematology & Oncology
DX: Z51.11 Encounter for antineoplastic chemotherapy (principal); C48.1 Malignant neoplasm of specified parts of peritoneum; J44.9 Chronic obstructive pulmonary disease, unspecified; M19.90 Unspecified osteoarthritis, unspecified site; F17.210 Nicotine dependence, cigarettes, uncomplicated; Z79.899 Other long term (current) drug therapy; Z88.2 Allergy status to sulfonamides
CPT/HCPCS: 36415; 80053; 82248; 83615; 84100; 84550; 86304; 96366; 96375; 96413; 96417; J1100; J1200; J1453; J1642; J2469; J3490; J7050; J7070; J9000; J9045; Q5118